=== PATIENT | female | born 1970 | race Two or more races ===

== ENCOUNTER 2024-12-29 10:58 | Outpatient (OUT) | payer OTHER, SELFPAY ==
--- OUTSIDE RECORDS SUMMARY | 2024-12-18 13:50 | XMS_ITS | Encounter Summary ---
Author Organization [facility] Address [address] [facility] [place] [address] Care Team Providers Care Ceramic Tiler Name Role Phone Terri Chun MD Primary Care Provider Reason for Visit * Reason Comments Pre-op Visit Encounter Details Date Type Department Care Team (Late st Contact Info) Description 12/18/2024 1:50 PM EDT Consult [facility] [address] [place] [address] Ayaan Barclay, DO [address] [place] [address] Pre-op examination; Labial cyst; Sebaceous cyst of labia Social History Tobacco Use Types Packs/Day Years Used Date Smoking Tobacco: Never Smokeless Tobacco: Never Alcohol Use Standard Drinks/Week Comments Never 0 (1 standard drink = 0.6 oz pure alcohol) Caffeine intake: 1-2 cups per day coffee, soda Social Connection and Isolat ion Panel [NHANES] Answer Date Recorded In a typical week, how many times do you talk on the phone with family, friends, or neighbors? More than three times a week 07/29/2023 How often do you get togethe r with friends or relatives? More than three times a week 07/29/2023 How often do you attend chur ch or presybeterian services? Never 07/29/2023 Do you belong to any clubs o r organizations such as baptism groups, unions, fraternal or athletic groups, or school groups? No 07/29/2023 How often do you attend meet ings of the clubs or organizations you belong to? Never 07/29/2023 Are you , , di vorced, , never , or living with a partner? 07/29/2023 AUDIT-C Answer Date Recorded Q1: How often do you have a drink containing alcohol? Never 07/29/2023 Q2: How many drinks containi ng alcohol do you have on a typical day when you are drinking? Patient does not drink Q3: How often do you have si x or more drinks on one occasion? Never 07/29/2023 Overall Financial Resource Strain (CARDIA) Answe r Date Recorded How hard is it for you to pa y for the very basics like food, housing, medical care, and heating? Not very hard 07/29/2023 PHQ-2 Answer Date Recorded Patient Health Questionnaire-2 Score 0 09/08/2024 [facility] - Occupational Stress Questionnaire Answer Date Recorded Do you feel stress - tense, restless, nervous, or anxious, or unable to sleep at night because your mind is troubled all the time - these days? Very much 07/29/2023 Exercise Vital Sign Answer Date Recorde d On average, how many days pe r week do you engage in moderate to strenuous exercise (like a brisk walk)? 3 days 07/29/2023 On average, how many minutes do you engage in exercise at this level? 30 min 07/29/2023 Hunger Vital Sign Answer Date Recorded Within the past 12 months, y ou worried that your food would run out before you got the money to buy more. Never true 07/29/19 24 Within the past 12 months, t he food you bought just didn't last and you didn't have money to get more. Never true 07/29/2023 PRAPARE - Transportation Answer Date Re corded In the past 12 months, has l ack of transportation kept you from medical appointments or from getting medications? No 07/09 In the past 12 months, has l ack of transportation kept you from meetings, work, or from getting things needed for daily living? No 07/29/2023 Housing Stability Vital Sign Answer Adrien e Recorded In the last 12 months, was t here a time when you were not able to pay the mortgage or rent on time? No 07/29/2023 Number of Places Lived in the Last Year Not on f ile 07/29/2023 In the last 12 months, was t here a time when you did not have a steady place to sleep or slept in a chcf (including now)? No 07/29/2023 Comments No Sex and Gender Information Value Date Recorded Sex Assigned at Not on file Legal Sex Female 7:02 PM EDT Gender Identity Female 08/19/2022 7:02 PM EDT Sexual Orientation Not on file documented as of this encounter Last Filed Vital Signs Vital Sign Reading Time Taken Comments Blood Pressure 102/80 12/18/2024 1:57 PM EDT Pulse - - Temperature - - Respiratory Rate - - Oxygen Saturation - - Inhaled Oxygen Concentration - - Weight 87.9 kg (193 lb 12 oz) 12/18/2024 1:57 PM EDT Height 160 cm (5' 3 ) 12/18/2024 1:57 PM EDT Body Mass Index 34.32 12/18/2024 1:57 PM EDT documented in this encounter Progress Notes * Lorelei Ziegler - 12/18/2024 1:50 PM EDT Reason for Appointment: Patient ID: Amanda Adams is a 54 y.o. female who presents for Pre-op Visit Patient presents today for Pre Op appointment. Patient is scheduled to undergo excision of benign lesion, multiple destruction of labia majora and minora lesions on 01-12-[address] Barclay at [facility]. MEDICATIONS Current Outpatient Medications Medication Instructions atorvastatin (LIPITOR) 10 mg, Oral, Daily Tirzepatide 10 mg, Subcutaneous, Weekly ALLERGIES Allergies Allergen Reactions Penicillins Hives PROBLEMS Active Ambulatory Problems Diagnosis Date Noted Abnormal mammogram 11/26/2022 Anxiety 11/26/2022 Conductive hearing loss, unilateral, right ear with restricted hearing on the contralateral side 11/26/2022 Dysfunction of both eustachian tubes 11/26/2022 DUB (dysfunctional uterine bleeding) 11/26/2022 Dysmenorrhea 11/26/2022 Female cystocele 11/26/2022 Hypercoagulable state ([facility]) 11/26/2022 Hyperlipidemia 11/26/2022 Iron deficiency anemia 11/26/2022 Localized swelling, mass and lump, trunk 11/26/2022 Metrorrhagia 11/26/2022 Morbid (severe) obesity due to excess calories ([facility]) 11/26/2022 Pulmonary embolus (HCC) 11/26/2022 Thyroid nodule 11/26/2022 Type 2 diabetes mellitus without complication (HCC) 11/26/2022 Urinary incontinence 11/26/2022 Deep vein thrombosis (DVT) of lower extremity (HCC) 07/30/2023 Diabetes (HCC) 07/30/2023 Hypertension 07/30/2023 Excessive and frequent menstruation 02/24/2017 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/24/2017 Rectocele 2022 Resolved Ambulatory Problems Diagnosis Date Noted No Resolved Ambulatory Problems Past Medical History: Diagnosis Date Anemia Clavicular area fullness Conductive hearing loss DM (diabetes mellitus), type 2 (HCC) DVT (deep venous thrombosis) (HCC) DVT (deep venous thrombosis) (HCC) 09/2016 ETD (eustachian tube dysfunction) Generalized anxiety disorder H/O total hysterectomy 06/2022 Lymphadenopathy of head and neck Migraine without aura Personal history of other medical treatment HISTORY PAST MEDICAL HISTORY SOCIAL HISTORY Past Medical History: Diagnosis Date Anemia Clavicular area fullness Conductive hearing loss Conductive hearing loss of right ear with restricted hearing of left ear DM (diabetes mellitus), type 2 (HCC) DVT (deep venous thrombosis) (HCC) DVT (deep venous thrombosis) (HCC) 09/2016 PE ETD (eustachian tube dysfunction) bilateral Generalized anxiety disorder H/O total hysterectomy 06/2022 Lymphadenopathy of head and neck Migraine without aura without mention of intractable migraine without mention of status migrainosus Personal history of other medical treatment physical treatment Thyroid nodule Social History Tobacco Use Smoking status: Never Smokeless tobacco: Never Substance Use Topics Alcohol use: Never Comment: Caffeine intake: 1-2 cups per day coffee, soda Drug use: Never FAMILY HISTORY Family History Problem Relation Name Age of Onset Lung cancer Mother Lung disease Mother Kidney cancer Mother Diabetes Father SURGICAL HISTORY Past Surgical History: Procedure Laterality Date BREAST LUMPECTOMY Right 1986 BREAST LUMPECTOMY 11/2016 Right breast lumpectomy with needle localization-benign CT ANGIOGRAM HEART CORONARY 06/25/2021 CT ANGIOGRAM TAVR 06/25/2021 CYSTOSCOPY 07/02/2022 HYSTERECTOMY 07/02/2022 OTHER SURGICAL HISTORY 2017 uterine ablation OTHER SURGICAL HISTORY 04/10/2022 Cath in urethra TONSILLECTOMY 1977 TUBAL LIGATION 2002 REVIEW OF SYSTEMS Review of Systems: Review of Systems Constitutional: Negative. HENT: Negative. Eyes: Negative. Respiratory: Negative. Cardiovascular: Negative. Gastrointestinal: Negative. Genitourinary: Negative. Musculoskeletal: Negative. Skin: Negative. Neurological: Negative. All other systems reviewed and are negative. Hematological: Negative. Endocrine: Negative. Allergic/Immunologic: Negative. OBJECTIVE Objective: Physical Exam Constitutional: Appearance: Normal appearance. She is normal weight. HENT: Head: Normocephalic. Cardiovascular: Rate and Rhythm: Normal rate. Pulses: Normal pulses. Pulmonary: Effort: Pulmonary effort is normal. Breath sounds: Normal breath sounds. Abdominal: Palpations: Abdomen is soft. Musculoskeletal: General: Normal range of motion. Neurological: General: No focal deficit present. Mental Status: She is alert and oriented to person, place, and time. Psychiatric: Mood and Affect: Mood normal. Behavior: Behavior normal. Thought Content: Thought content normal. Judgment: Judgment normal. Vitals and nursing note reviewed. Vitals: Estimated body mass index is 35.69 kg/m?? as calculated from the following: Height as of 09/08/24: 5' 3 . Weight as of 11/06/24: 201 lb 8 oz. BP: No LMP recorded. Patient is postmenopausal. ASSESSMENT & PLAN ICD-10-CM 1. Pre-op examination Z01.818 2. Labial cyst N90.7 3. Sebaceous cyst of labia N90.7 Patient presents for pre op for labial cyst excision. All questions answered and consents signed. Documented by Ayaan Barclay DO documented in this encounter Plan of Treatment Upcoming Encounters Date Type Department Care Team (Late st Contact Info) Description 01/22/2025 11:30 AM EDT Office Visit [facility] [address] [place] [address] Mayra Saavedra PA [address] [place], [place] [id number] documented as of this encounter Visit Diagnoses Diagnosis Pre-op examination Labial cyst Other specified noninflammatory disorder of vulva and perineum Sebaceous cyst of labia documented in this encounter Additional Health Concerns Assessment Noted Time PHQ-9 Depression Total Score: 3 08/10/19 24 2:58 PM EST documented as of this encounter Care Teams Ceramic Tiler Relationship Specialty Start Date End Date Terri Chun MD [address] [place] [address] PCP - General Family Medicine 11/11/22 documented as of this encounter
--- OUTSIDE RECORDS SUMMARY | 2024-12-29 11:08 | XMS_ITS | Encounter Summary ---
Author Organization [facility] Address [address] [place] [address] Phone Care Team Providers Care Single Stroke Preformer Name Role Phone Terri Chun MD Primary Care Provider [phone] Encounter Details Date Type Department Care Team (Late st Contact Info) Description 12/19/2018 [facility] [address] [place] [address] Conversion, Onbase Social History Tobacco Use Types Packs/Day Years Used Date Smoking Tobacco: Never Assessed Comments Unknown Sex and Gender Information Value Date Recorded Sex Assigned at Not on file Legal Sex Female 3:30 PM EST Gender Identity Not on file Sexual Orientation Not on file documented as of this encounter Plan of Treatment Scheduled Orders Name Type Priority Associated Diagnoses Orde r Schedule AUDIOLOGY REPORT - ONBASE SCAN Audiology Ordered: 019 documented as of this encounter Visit Diagnoses Not on filedocumented in this encounter Care Teams Single Stroke Preformer Relationship Specialty Start Date End Date Terri Chun MD [address] [place] [address] PCP - General 02/14/19 documented as of this encounter
--- OUTSIDE RECORDS SUMMARY | 2024-12-29 11:08 | XMS_ITS | Encounter Summary ---
Author Organization [facility] Address [address] [place] [address] Care Team Providers Care Chiropractic Teacher Name Role Phone Terri Chun MD Primary Care Provider [phone] Encounter Details Date Type Department Care Team (Late st Contact Info) Description 05/08/2024 Orders Only [facility] [address] [place] [address] Terri Gary, JAY [address] [place] [address] Social History Tobacco Use Types Packs/Day Years [...] often do you attend chur ch or rastafarian services? Never 07/29/2023 Do you belong to any clubs o r organizations such as caodaism groups, unions, fraternal or athletic groups, or [...] Date Recorded Patient Health Questionnaire-2 Score 0 08/10/2023 [facility] - Occupational Stress Questionnaire Answer Date Recorded [...] place to sleep or slept in a care home (including now)? No 07/29/2023 Comments Unknown Sex and Gender Information Value Date Recorded Sex Assigned at Not on file Legal Sex Female 7:02 PM EDT Gender Identity Female 08/19/2022 7:02 PM EDT Sexual Orientation Not on file documented as of this encounter Plan of Treatment Upcoming Encounters Date Type Department Care Team (Late st Contact Info) Description 01/22/2025 11:30 AM EDT Office Visit [facility] [address] [place] [address] Mayra Saavedra PA [address] [place], [place] [id number] documented as of this encounter Visit Diagnoses Not on filedocumented in this encounter Additional Health Concerns Assessment Noted Time PHQ-9 Depression Total Score: 3 08/10/19 24 2:58 PM EST documented as of this encounter Care Teams Chiropractic Teacher Relationship Specialty Start Date End Date Terri Chun MD [address] [place] [address] PCP - General Family Medicine 11/11/22 documented as of this encounter
--- OUTSIDE RECORDS SUMMARY | 2024-12-29 11:08 | XMS_ITS | Encounter Summary ---
Author Organization [employer] Address [id number] [address] [place] [address] Care Team Providers Care Manager Pacu Name Role Phone Terri Chun MD Primary Care Provider [phone] Encounter Details Date Type Department Care Team (Late st Contact Info) Description 06/24/2021 Orders Only [facility] [address] [place] [address] External, Scanning Provider Social History Tobacco Use Types Packs/Day Years Used Date Smoking Tobacco: Never Alcohol Use Standard Drinks/Week Comments No 0 (1 standard drink = 0.6 oz pur e alcohol) Childcare Answer Date Recorded Childcare Unknown 11/16/2018 Employment Answer Date Recorded Employment Unknown 11/16/2018 Purpose - Life Answer Date Recorded Purpose and direction in life Unknown Comments Unknown Sex and Gender Information Value Date Recorded Sex Assigned at Not on file Legal Sex Female 11:58 AM EDT Gender Identity Not on file Sexual Orientation Not on file COVID-19 Exposure Response Date Recorded In the last month, have you been in contact with someone who was confirmed or suspected to have Coronavirus / COVID-19? No / Unsure 06/25/2021 2:17 PM EST documented as of this encounter Plan of Treatment Not on file documented as of this encounter Procedures Procedure Name Priority Date/Time Associated Diagnosis Comments ECG 12-LEAD Routine 2021 MULTIPLE LABS Routine 03/25/2021 XR CHEST 2 VWS Routine 03/25/2021 documented in this encounter Results * ECG 12 lead (2021) us Scanning Provider External ECG ORDERABLES Final Result Performing Organization Address [facility] Co de Phone Number MANUALLY TRANSCRIBED RESULTS * Multiple labs (03/25/2021) 03/25/2021 us Scanning Provider External CO IMAGING Final Result Performing Organization Address [facility] de Phone Number MANUALLY TRANSCRIBED RESULTS * X-ray chest 2 views (03/25/2021) Anatomical Region Laterality Modality Body, Chest N/A Computed Radiogr aphy us Scanning Provider External IMG DIAGNOSTIC IMAGIN G ORDERABLES Final Result documented in this encounter Visit Diagnoses Not on filedocumented in this encounter Care Teams Manager Pacu Relationship Specialty Start Date End Date Terri Chun MD [address] [place] [address] PCP - General Family Medicine 10/09/16 documented as of this encounter
--- OUTSIDE RECORDS SUMMARY | 2024-12-29 11:08 | XMS_ITS | Clinical Summary ---
Author Organization [facility] Healthcare Address [address] [place] [address] Care Team Providers Care Director Zone Name Role Phone Terri Chun MD Primary Care Provider [phone] Allergies Active Allergy Reactions Criticality Noted Date Comments Penicillins Hives 11/26/2022 Medications atorvastatin (Lipitor) 10 MG tabletIndications:H yperlipidemia, unspecified hyperlipidemia type Take 1 tablet (10 mg) by mouth Daily 90 tablet 4 Active Tirzepatide 10 MG/0.5ML solution auto-injectorIndica tions:Type 2 diabetes mellitus without complication, without long-term current use of insulin (HCC) Inject 10 mg under the skin 1 (one) time per week 6 mL 1 5 Active Active Problems Problem Noted Date Diagnosed Date Deep vein thrombosis (DVT) of lower extremity Overview (07/30/2023): right Diabetes 07/30/2023 Hypertension 07/30/2023 Abnormal mammogram 11/26/2022 Anxiety 11/26/2022 Conductive hearing loss, uni lateral, right ear with restricted hearing on the contralateral side 11/26/2022 Dysfunction of both eustachian tubes 11/26/2022 DUB (dysfunctional uterine bleeding) 11/26/2022 Dysmenorrhea 11/26/2022 Female cystocele 11/26/2022 Hypercoagulable state ([facility]) 11/26/2022 Hyperlipidemia 11/26/2022 Assessment & Plan (09/08/2024 11:32 AM EDT): Continue lipitor. Labs 03/30. Iron deficiency anemia 11/26/2022 Localized swelling, mass and lump, trunk 023 Metrorrhagia 11/26/2022 Morbid (severe) obesity due to excess calories 0 11/26/2022 Pulmonary embolus 11/26/2022 Thyroid nodule 11/26/2022 Type 2 diabetes mellitus without complication Urinary incontinence 11/26/2022 Rectocele 2022 Excessive and frequent menstruation 02/24/2017 Pulmonary embolism with infarction 02/24/2017 Encounters Date Type Department Care Team Description 12/18/2024 1:50 PM EDT Consult [facility] [address] [place] [address] Ayaan Barclay DO Pre-op examination; Labial cyst; Sebaceous cyst of labia 11/13/2024 Orders Only [facility] [address] [facility] [place] [address] Terri Chun MD 11/10/[address] [facility] [address] [facility] [place] [address] Terri Chun MD 11/08/2024 Refill [facility] [address] [place] [address] Terri Chun MD Type 2 diabetes mellitus without complication, without long-term current use of insulin ([facility]) (Primary Dx); Morbid (severe) obesity due to excess calories ([facility]) 11/06/2024 11:20 AM EDT Consult [facility] [address] [place] [address] Ayaan Barclay DO Sebaceous cyst of labia; Labial cyst 11/06/2024 Bamboo flowsheet [facility] [address] [place] [address] Ayaan Barclay DO 10/31/2024 Orders Only [facility] [address] [place] [address] Susi Frank LPN 10/19/2024 Results Follow-Up [facility] R OB [address] [place] [address] Terri Ball MA 10/16/2024 5:30 PM EDT Office Visit [facility] OB [address] [place] [address] Brandi Adams CNM Sebaceous cyst of labia 10/16/2024 Bamboo flowsheet [facility] OB [address] [place] [address] Brandi Adams CNM 10/11/2024 Travel from Last 3 Months Family History Medical History Relation Name Comments Diabetes Father Kidney cancer Mother Lung cancer Mother Lung disease Mother Relation Name Status Comments Brother 2 brothers Father Alive Mother Alive Social History Tobacco Use Types Packs/Day Years Used Date Smoking Tobacco: Never Smokeless Tobacco: Never Tobacco Cessation:Counseling Given: Not Answered Alcohol Use Standard Drinks/Week Comments Never 0 [...] week 07/29/2023 How often do you attend [facility] or religion services? Never 07/29/2023 Do you belong to any clubs o r organizations such as episcopalian groups, unions, fraternal or athletic groups, or [...] you are drinking? Patient does not drink 02/22/202 4 Q3: How often do you have si x or more drinks on one occasion? Never 07/29/2023 Overall Financial Resource Strain (CARDIA) Answe r Date Recorded How hard is it for you to pa y for the very basics like food, housing, medical care, and heating? Not very hard 07/29/2023 PHQ-2 Answer Date Recorded Patient Health Questionnaire-2 Score 0 09/08/2024 [facility] - Occupational Stress Questionnaire Answer Date Recorded [...] place to sleep or slept in a alf (including now)? No 07/29/2023 Comments No Sex and Gender Information Value Date Recorded Sex Assigned at Not on file Legal Sex Female 7:02 PM EDT Gender Identity Female 08/19/2022 7:02 PM EDT Sexual Orientation Not on file Last Filed Vital Signs Vital Sign Reading Time Taken Comments Blood Pressure 102/80 12/18/2024 1:57 PM EDT Pulse 72 09/08/2024 9:57 AM EDT Temperature 35.9 C (96.6 F) 08/01/2024 8:29 AM EST Respiratory Rate - - Oxygen Saturation 95% 09/08/2024 9:57 AM EDT Inhaled Oxygen Concentration - - Weight 87.9 kg (193 lb 12 oz) 12/18/2024 1:57 PM EDT Height 160 cm (5' 3 ) 12/18/2024 1:57 PM EDT Body Mass Index 34.32 12/18/2024 1:57 PM EDT Plan of Treatment Upcoming Encounters Date Type Department Care Team (Late st Contact Info) Description 01/22/2025 11:30 AM EDT Office Visit [facility] OB [address] [facility] [place] [phone] Mayra Saavedra PA [address] [facility] [place] [address] Health Maintenance Due Date Last Done Comments CT Colonography 1970 FIT-DNA 1970 FIT 1970 FOBT 1970 Sigmoidoscopy 1970 Pap Smear 05/21/2023 05/21/2020 Diabetes: Hemoglobin A1C 10/29/2024 025, 04/24/2024, 07/30/2023, Additional history exists Influenza Vaccine (#1) 2025 Cervical Cancer Screening 05/21/2025 HPV/Cotest 05/21/2025 05/21/2020 Diabetes: Urine Protein Screening 08/01/2025 08/01/2024, 06/25/2022, 06/11/2021, Additional history exists Mammogram 09/18/2025 09/18/2024, 03/11/2023, 01/23/2022, Additional history exists Diabetes: Retinopathy Screening 10/17/2026 10/17/2024, 08/14/2021, 07/10/2019, Additional history exists Colonoscopy 10/03/2033 10/04/2023, 04/02/2024, 10/04/2023 Colorectal Cancer Screening 10/03/2033 Procedures Procedure Name Priority Date/Time Associated Diagnosis Comments DIABETIC RETINOPATHY SCREENING - OU - BOTH EYES Routine 10/17/2024 10:10 AM EDT SURESWAB(R) ADVANCED VAGINITIS PLUS, TMA Routine 10/17/2024 7:54 AM EDT Sebaceous cyst of labia BI MAMMOGRAM SCREENING TOMOSYNTHESIS BILATERAL Routine 09/18/2024 11:38 AM EDT Breast cancer screening by mammogram MICROALBUMIN / CREATININE URINE RATIO Routine 08/01/2024 9:28 AM EST Type 2 diabetes mellitus without complication, with long-term current use of insulin (HCC) POCT GLYCOSYLATED HEMOGLOBIN (HGB A1C) Routine 08/01/2024 8:41 AM EST Type 2 diabetes mellitus without complication, with long-term current use of insulin (HCC) Q - THINPREP(R) TIS AND HPV MRNA E6/E7 RFL HPV 16,18/45 Routine 05/21/2020 PAP SMEAR Routine 05/21/2020 12:00 AM EST from Last 3 Months or Most Recently Relevant to Health Maintenance Results * Diabetic Retinopathy Screening - OU - Both Eyes (10/17/2024 10:10 AM EDT) Anatomical Region Laterality Modality Head Other Terri Chun MD OPHTH PHOTOGRAPHY Final Resul t * SURESWAB(R) ADVANCED VAGINITIS PLUS, TMA (10/17/2024 7:54 AM EDT) SURESWAB(R) ADV BACTERIAL VAGINOSIS (BV), TMA NEGATIVE NEGATIVE [facility] ANITA SPECIES NOT DETECTED NOT DETECTED [facility] ANITA GLABRATA NOT DETECTED NOT DETECTED [facility] Comment: Anita species C. albicans, C. tropicalis, C. parapsilosis, and/or C. dubliniensis can be detected, but not differentiated, in the Anita spp. result. TRICHOMONAS VAGINALIS (TV) NOT DETECTED NOT DETECTED [facility] CHLAMYDIA TRACHOMATIS RNA, TMA, UROGENITAL NOT DETECTED NOT DETECTED [facility] NEISSERIA GONORRHOEAE RNA, TMA, UROGENITAL NOT DETECTED NOT DETECTED [facility]OO Comment: For additional information, please refer to https://education.Market Track/faq/XLL332 (This link is being provided for information/ educational purposes only.) 10/17/2024 7:54 AM EDT 10/17/2024 7:55 AM EDT Narrative Resulting Agency Comment Performing Organization Information Site ID: QPT Name: [employer] [facility] Address: [address] [place] [address], [address] [place] [id number] Director: Parker Holcomb MD us Brandi TREVINO LAB CYTOLOGY ORDERABLES Zeina lao Result [facility] * Bilateral screening mammogram with tomosynthesis (09/18/2024 11:38 AM EDT) Anatomical Region Laterality Modality Breast Bilateral Mammography 09/18/2024 12:2 4 PM EDT Impressions 09/18/2024 12:36 PM EDT Impression: No specific evidence of malignancy seen in either breast. BIRADS 2 - Benign Findings DENSITY: There are scattered areas of fibroglandular density. FOLLOW-UP: Routine Screening Mammogram ELECTRONICALLY SIGNED BY: Chepe Downey M.D. Narrative 09/18/2024 12:36 PM EDT Examination: BI MAMMOGRAM SCREENING TOMOSYNTHESIS BILATERAL Clinical History: screening Technique: Screening digital mammography study of both breasts was performed with 2-D and 3-D tomosynthesis imaging. Study was compared to the prior exam dated 08/11/2023. Findings: There is no evidence of interval dominant spiculated mass, grouped microcalcifications, or skin thickening which would be suggestive of malignancy. A few asymmetric densities bilaterally similar to the prior study as well as prior reviewed studies dating back to 12/27/2020. A few benign calcifications on the left. Axillary lymph nodes are noted bilaterally which appear grossly unremarkable. Procedure Note Chepe Downey MD - 09/18/2024 Examination: BI MAMMOGRAM SCREENING TOMOSYNTHESIS BILATERAL Clinical History: screening Technique: Screening digital mammography study of both breasts wasperformed with 2-D and 3-D tomosynthesis imaging. Study was compared tothe prior exam dated 08/11/2023. Findings: There is no evidence of interval dominant spiculated mass,grouped microcalcifications, or skin thickening which would be suggestiveof malignancy. A few asymmetric densities bilaterally similar to the prior study as wellas prior reviewed studies dating back to 12/27/2020. A few benigncalcifications on the left. Axillary lymph nodes are noted bilaterallywhich appear grossly unremarkable. IMPRESSION: Impression: No specific evidence of malignancy seen in either breast. BIRADS 2 - Benign Findings DENSITY: There are scattered areas of fibroglandular density. FOLLOW-UP: Routine Screening Mammogram ELECTRONICALLY SIGNED BY: Chepe Downey M.D. us Terri Chun MD IMG BI PROCEDURES Final Resul t * Microalbumin / creatinine urine ratio (08/01/2024 9:28 AM EST) CREATININE, RANDOM URINE 236 20 - 275 mg/dL [facility] ALBUMIN, URINE 0.8 See Note: mg/dL [facility] Comment: Reference Range: Reference Range Not established ALBUMIN/CREATININE RATIO, RANDOM URINE 3 <30 mg/g creat [facility] Comment: The ADA defines abnormalities in albumin excretion as follows: Albuminuria Category Result (mg/g creatinine) Normal to Mildly increased <30 Moderately increased 30-299 Severely increased > OR = 300 The ADA recommends that at least two of three specimens collected within a 3-6 month period be abnormal before considering a patient to be within a diagnostic category. Urine Urine specimen obtained by clean catch procedure / Unknown 08/01/2024 9:28 AM EST 08/01/2024 4:34 PM EST Narrative Resulting Agency Comment Performing Organization Information Site ID: QPT Name: [employer] [facility] Address: [address] [place] [address], [address] [place] [phone] Director: Parker Holcomb MD us Apolonia Felder NP LAB URINE ORDERABLES Fi nal Result [facility] * POCT glycosylated hemoglobin (Hb A1C) docked device (08/01/2024 8:41 AM EST) Hemoglobin A1C 6.3 Blood Venous blood specimen / Unknown 08/01/2024 8:41 AM EST Apolonia Felder ASSISTED LIVING HOUSEKEEPER POINT OF CARE TEST ENTE R/EDIT ORDERABLES Final Result * Q - THINPREP(R) TIS AND HPV MRNA E6/E7 RFL HPV 16,18/45 (05/21/2020) CLINICAL INFORMATION: None given [facility] LMP: None given [facility] PREV. PAP: None given [facility] ACY [facility] PREV. BX: None given [facility] SOURCE: None given [facility] STATEMENT OF ADEQUACY: SEE NOTE [facility] Comment: Satisfactory for evaluation. Endocervical/transformation zone component present. INTERPRETATION/RE SULT: Negative for intraepithelial lesion or malignancy. [facility] COMMENT: This Pap test has been evaluated with computer assisted technology. [facility] ENTRY LEVEL MARKETING REPRESENTATIVE: SEE NOTE NO [facility] Comment: MAHAD TORRES(ASCP) CT screening location: [place] [address]. COMMENT SEE NOTE [facility] Comment: EXPLANATORY NOTE: The Pap is a screening test for cervical cancer. It is not a diagnostic test and is subject to false negative and false positive results. It is most reliable when a satisfactory sample, regularly obtained, is submitted with relevant clinical findings and history, and when the Pap result is evaluated along with historic and current clinical information. HPV MRNA E6/E7 Not Detected Not Detected [facility] Comment: This test was performed using the APTIMA HPV Assay ([employer] This assay detects E6/E7 viral messenger RNA (mRNA) from 14 high-risk HPV types (16,18,31,33,35,39,45,51,52,56,58,59,66,68). The analytical performance characteristics of this assay have been determined by [employer]. The modifications have not been cleared or approved by the FDA. This assay has been validated pursuant to the CLIA regulations and is used for clinical purposes. 05/21/2020 us Brandi Adams CNM [facility] Final Result [facility] * Pap Smear (05/21/2020 12:00 AM EST) Swab Cervical swab / Unknown Ning Nurse [facility] Ob LAB CYTOLOGY ORDERABLES Final Result EXTERNAL LAB from Last 3 Months or Most Recently Relevant to Health Maintenance [facility] Care Teams Director Zone Relationship Specialty Start Date End Date Terri Chun MD [address] [facility] [place], [place] [id number] PCP - General Family Medicine 11/11/22
--- OUTSIDE RECORDS SUMMARY | 2024-12-29 11:08 | XMS_ITS | Encounter Summary ---
Author Organization [facility] Address [address] [facility] [place] [address] Care Team Providers Care Shade Hanger Name Role Phone Terri Chun MD Primary Care Provider [phone] Encounter Details Date Type Department Care Team ([facility] Contact Info) Description 12/19/2022 Orders Only [facility]NR FM [address] [facility] [place] [address] Danni Asencio MA Social History Tobacco Use Types Packs/Day Years Used Date Smoking Tobacco: Never Smokeless Tobacco: Never Alcohol Use Standard Drinks/Week Comments Never 0 (1 standard drink = 0.6 oz pure alcohol) Caffeine intake: 1-2 cups per day coffee, soda PHQ-2 Answer Date Recorded Patient Health Questionnaire-2 Score 0 11/26/2022 Comments Unknown Sex and Gender Information Value Date Recorded Sex Assigned at Not on file Legal Sex Female 7:02 PM EDT Gender Identity Female 08/19/2022 7:02 PM EDT Sexual Orientation Not on file documented as of this encounter Plan of Treatment Upcoming Encounters Date Type Department Care Team (Late Contact Info) Description 01/22/2025 11:30 AM EDT Office Visit [facility] BCP OB [address] [facility] [id number] Mayra Saavedra PA [address] [facility] [address] [place], [place] [id number] documented as of this encounter Visit Diagnoses Not on filedocumented in this encounter Care Teams Shade Hanger Relationship Specialty Start Date End Date Terri Chun MD [address] [place] [address] PCP - General Family Medicine 11/11/22 documented as of this encounter
--- OUTSIDE RECORDS SUMMARY | 2024-12-29 11:08 | XMS_ITS | Encounter Summary ---
Author Organization [facility] Address [address] [facility] [place] [address] Care Team Providers Care Syrup Maker Name Role Phone Terri Chun MD Primary Care Provider [phone] Encounter Details Date Type Department Care Team (Late st Contact Info) Description 11/13/2024 Orders Only [facility] FNR [address] [place] [address] Terri Chun MD [address] [place] [address] Social History Tobacco Use Types [...] often do you attend chur ch or restorationism services? Never 07/29/2023 Do you belong to any clubs o r organizations such as mu-ism groups, unions, fraternal or athletic groups, or [...] Recorded Patient Health Questionnaire-2 Score 0 09/08/2024 [facility] - Occupational Stress [...] place to sleep or slept in a residential (including now)? No 07/29/2023 Comments No Sex [...] EDT Office Visit [facility] BCP OB [address] [facility] [place] [address] Mayra Saavedra PA [address] [facility] [address] documented as of this encounter Procedures Procedure Name Priority Date/Time Associated Diagnosis Comments DIABETIC RETINOPATHY SCREENING - OU - BOTH EYES Routine 10/17/2024 10:10 AM EDT documented in this encounter Results * Diabetic Retinopathy Screening - OU - Both Eyes (10/17/2024 10:10 AM EDT) Anatomical Region Laterality Modality Head Other us Terri Chun MD OPHTH PHOTOGRAPHY Final Resul t documented in this encounter Visit Diagnoses Not on filedocumented in this encounter Additional Health Concerns Assessment Noted Time PHQ-9 Depression Total Score: 3 08/10/19 24 2:58 PM EST documented as of this encounter Care Teams Syrup Maker Relationship Specialty Start Date End Date Terri Chun MD [address] [place] [address] PCP - General Family Medicine 11/11/22 documented as of this encounter
--- OUTSIDE RECORDS SUMMARY | 2024-12-29 11:08 | XMS_ITS | Clinical Summary ---
Author Organization [facility] Address [address] [place], [place] [id number] Care Team Providers Care Radio Announcer Name Role Phone Terri Chun Primary Care Provider [phone] Allergies Active Allergy Reactions Criticality Noted Date Comments Penicillins Hives,Rash 09/30/2016 Medications traZODone (DESYREL) 50 mg tablet Take 50 mg by mouth daily at bedtime. Active metFORMIN (GLUCOPHAGE) 1,000 mg tablet Take 1,000 mg by mouth twice daily with meals. Active lisinopril 2.5 mg tablet Take 2.5 mg by mouth once daily. Active atorvastatin (LIPITOR) 20 mg tablet Take 20 mg by mouth once daily. Active liraglutide (VICTOZA 2-IDANIA) 0.6 mg/0.1 mL (18 mg/3 mL) pnij Inject 1.8 mg subcutaneously once daily. Active Active Problems Problem Noted Date Diagnosed Date Pulmonary embolus with infarction 02/24/2017 Iron deficiency anemia due to chronic blood loss 02/24/2017 Menorrhagia with regular cycle 02/24/2017 Family History Medical History Relation Comments Diabetes Father Relation Status Comments Father Alive Mother Alive Social History Tobacco Use Types Packs/Day Years Used Date Smoking Tobacco: Never Smokeless Tobacco: Never Alcohol Use Standard Drinks/Week Comments No 0 (1 standard drink = 0.6 oz pur e alcohol) Comments No Sex and Gender Information Value Date Recorded Sex Assigned at Not on file Legal Sex Female 8:55 AM EDT Gender Identity Not on file Sexual Orientation Not on file Last Filed Vital Signs Vital Sign Reading Time Taken Comments Blood Pressure 131/60 03/22/2017 2:00 PM EDT Pulse 81 03/22/2017 2:00 PM EDT Temperature 37.2 C (98.9 F) 03/22/2017 2:00 PM EDT Respiratory Rate 18 03/22/2017 2:00 PM EDT Oxygen Saturation 99% 03/10/2017 9:15 AM EDT resting Inhaled Oxygen Concentration - - Weight 101.8 kg (224 lb 6.4 oz) 03/15/2017 9:16 AM EDT Height 160 cm (5' 2.99 ) 03/15/2017 9:16 AM EDT Body Mass Index 39.76 03/15/2017 9:16 AM EDT Plan of Treatment Health Maintenance Due Date Last Done Comments Anxiety Screening 1988 Depression Screening 1988 HIV Screening 1988 Hepatitis C Screening 1988 DTaP,Tdap,Td Vaccine (1 - Tdap) 1989 Hepatitis B Vaccine (1 of 3 - 19+ 3-dose series) 06/23 Cervical Cancer Screening [address] Colonography 2015 Cologuard (FIT-DNA) 2015 Colonoscopy 2015 Colorectal Cancer Screening 2015 Diabetes Screening 2015 Fecal Occult Blood 2015 Lipid Screening 2015 Sigmoidoscopy 2015 Pneumococcal Vaccine: 50+ (1 of 1 - PCV) 2020 Shingrix Vaccine (1 of 2) 2020 Covid-19 Vaccine (1 - 2023- season) 2024 Influenza Vaccine (#1) 2025 Insurance [facility] PL[facility] Care Teams Radio Announcer Relationship Specialty Start Date End Date Terri Chun [address] [place] [address] PCP - General Family Medicine 02/18/17
--- OUTSIDE RECORDS SUMMARY | 2024-12-29 11:08 | XMS_ITS | Encounter Summary ---
Author Organization [facility] Address [address] [place] [address] Care Team Providers Care Weld Technician Name Role Phone Terri Chun MD Primary Care Provider [phone] Encounter Details Date Type Department Care Team (Late st Contact Info) Description 10/19/2024 Results Follow-Up [facility] OB [address] [place] [address] Terri Ball MA Social History Tobacco Use Types Packs/Day [...] often do you attend chur ch or oriental orthodox services? Never 07/29/2023 Do you belong to any clubs o r organizations such as muslim groups, unions, fraternal or athletic groups, or [...] Recorded Patient Health Questionnaire-2 Score 0 09/08/2024 [facility] - Occupational [...] place to sleep or slept in a correction (including now)? No 07/29/2023 Comments No Sex [...] EDT Office Visit [facility] BCP OB [address] [facility] [address] Mayra Saavedra PA [address] [facility] [place] [address] documented as of this encounter Visit Diagnoses Not on filedocumented in this encounter Additional Health Concerns Assessment Noted Time PHQ-9 Depression Total Score: 3 08/10/19 24 2:58 PM EST documented as of this encounter Care Teams Weld Technician Relationship Specialty Start Date End Date Terri Chun MD [address] [place] [address] PCP - General Family Medicine 11/11/22 documented as of this encounter
--- OUTSIDE RECORDS SUMMARY | 2024-12-29 11:08 | XMS_ITS | Encounter Summary ---
Author Organization [facility] Address [address] [facility] [place] [address] Care Team Providers Care Cut Off Sawyer Log Name Role Phone Terri Chun MD Primary Care Provider [phone] Encounter Details Date Type Department Care Team (Late st Contact Info) Description 12/31/2022 Abstract [facility] OB [address] [place] [address] Brandi Adams, CNM [address] [place], [place] [id number] Social History Tobacco Use Types Packs/Day Years [...] EDT Office Visit [facility] [address] [facility] [address] Mayra Saavedra PA [address] [place] [address] documented as of this encounter Visit Diagnoses Not on filedocumented in this encounter Care Teams Cut Off Sawyer Log Relationship Specialty Start Date End Date Terri Chun MD [address] [place] [address] PCP - General Family Medicine 11/11/22 documented as of this encounter
--- OUTSIDE RECORDS SUMMARY | 2024-12-29 11:08 | XMS_ITS | Clinical Summary ---
Author Organization [facility] Address [address] [place] [address] Phone Care Team Providers Care Career Services Coordinator Name Role Phone Terri Chun MD Primary Care Provider [phone] Social History Tobacco Use Types Packs/Day Years Used Date Smoking Tobacco: Never Assessed Comments Unknown Sex and Gender Information Value Date Recorded Sex Assigned at Not on file Legal Sex Female 3:30 PM EST Gender Identity Not on file Sexual Orientation Not on file Plan of Treatment Not on file Care Teams Career Services Coordinator Relationship Specialty Start Date End Date Terri Chun MD [address] [place] [address] PCP - General 02/14/19
--- OUTSIDE RECORDS SUMMARY | 2024-12-29 11:08 | XMS_ITS | Encounter Summary ---
Author Organization [facility] Address [address] [place] [address] Care Team Providers Care Certified Nursing Assistant Name Role Phone Terri Chun MD Primary Care Provider [phone] Encounter Details Date Type Department Care Team (Late st Contact Info) Description 09/18/2024 Results Follow-Up [facility] [address] [place] [address] Terri Chun MD [address] [place] [address] Social History Tobacco Use Types [...] often do you attend chur ch or hinduism services? Never 07/29/2023 Do you belong to any clubs o r organizations such as zoroastrianism groups, unions, fraternal or athletic groups, or [...] Recorded Patient Health Questionnaire-2 Score 0 09/08/2024 [facility] - Occupational Stress Questionnaire Answer Date Recorded [...] place to sleep or slept in a mcc (including now)? No 07/29/2023 Comments Unknown Sex [...] EDT Office Visit [facility] [address] [facility] [place] [address] Mayra Saavedra PA [address] [facility] [address] [place], [place] [id number] documented as of this encounter Visit Diagnoses Not on filedocumented in this encounter Additional Health Concerns Assessment Noted Time PHQ-9 Depression Total Score: 3 08/10/19 24 2:58 PM EST documented as of this encounter Care Teams Certified Nursing Assistant Relationship Specialty Start Date End Date Terri Chun MD [address] [place] [address] PCP - General Family Medicine 11/11/22 documented as of this encounter
--- OUTSIDE RECORDS SUMMARY | 2024-12-29 11:08 | XMS_ITS | Encounter Summary ---
Author Organization [facility] Address [address] [facility] [place] [address] Care Team Providers Care Qualification Engineer Name Role Phone Terri Chun MD Primary Care Provider [phone] Encounter Details Date Type Department Care Team (Late Contact Info) Description 01/25/2023 Abstract [facility] [address] [place] [address] Apolonia Felder NP [address] [place] [address] Social History Tobacco Use Types Packs/Day Years [...] EDT Office Visit [facility] [address] [place] [address] Mayra Saavedra PA [address] [place] [address] documented as of this encounter Visit Diagnoses Not on filedocumented in this encounter Care Teams Qualification Engineer Relationship Specialty Start Date End Date Terri Chun MD [address] [place] [address] PCP - General Family Medicine 11/11/22 documented as of this encounter
--- OUTSIDE RECORDS SUMMARY | 2024-12-29 11:08 | XMS_ITS | Encounter Summary ---
Author Organization [facility] Address [address] [facility] [place] [address] Care Team Providers Care Project Facilitator Name Role Phone Terri Chun MD Primary Care Provider [phone] Encounter Details Date Type Department Care Team (Late Contact Info) Description 05/05/2023 Abstract [facility] [address] [place] [address] Apolonia Felder NP [address] [place] [address] Social History Tobacco Use Types [...] Visit [facility] [address] [place] [address] Mayra Saavedra PA [address] [place] [address] documented as of this encounter Visit Diagnoses Not on filedocumented in this encounter Care Teams Project Facilitator Relationship Specialty Start Date End Date Terri Chun MD [address] [place] [address] PCP - General Family Medicine 11/11/22 documented as of this encounter
--- OUTSIDE RECORDS SUMMARY | 2024-12-29 11:08 | XMS_ITS | Encounter Summary ---
Author Organization [facility] Address [address] [place] [address] Care Team Providers Care Swing Grinder Name Role Phone Terri Chun MD Primary Care Provider [phone] Encounter Details Date Type Department Care Team (Late st Contact Info) Description 10/31/2024 Orders Only [facility] [address] [address] Susi Frank LPN [address] [facility], [place] [id number] Social History Tobacco Use Types Packs/Day Years [...] often do you attend chur ch or yarsanism services? Never 07/29/2023 Do you belong to any clubs o r organizations such as presybeterian groups, unions, fraternal or athletic groups, or [...] Patient Health Questionnaire-2 Score 0 09/08/2024 [facility] of Occupat ional [facility] - Occupational Stress Questionnaire Answer Date [...] place to sleep or slept in a detention (including now)? No 07/29/2023 Comments No Sex [...] EDT Office Visit [facility] [address] [facility] [address] Mayra Saavedra PA [address] [facility] [place] [address] documented as of this encounter Procedures Procedure Name Priority Date/Time Associated Diagnosis Comments PAP SMEAR Routine 05/21/2020 12:00 AM EST documented in this encounter Results * Pap Smear (05/21/2020 12:00 AM EST) Swab Cervical swab / Unknown us Ning Nurse [facility] LAB CYTOLOGY ORDERABLES Final Result EXTERNAL LAB documented in this encounter Visit Diagnoses Not on filedocumented in this encounter Additional Health Concerns Assessment Noted Time PHQ-9 Depression Total Score: 3 08/10/19 24 2:58 PM EST documented as of this encounter Care Teams Swing Grinder Relationship Specialty Start Date End Date Terri Chun MD [address] [place] [address] PCP - General Family Medicine 11/11/22 documented as of this encounter
--- OUTSIDE RECORDS SUMMARY | 2024-12-29 11:08 | XMS_ITS | Encounter Summary ---
Author Organization [facility] Address [address] [facility] [place] [address] Care Team Providers Care System Archive Analyst Name Role Phone Terri Chun MD Primary Care Provider [phone] Encounter Details Date Type Department Care Team (Late Contact Info) Description 12/25/2022 Abstract [facility] [address] [place] [address] Apolonia Felder NP [address] [place] [address] Social History Tobacco Use Types [...] Visit [facility] [address] [place] [address] Mayra Saavedra PA [address] [place] [address] documented as of this encounter Visit Diagnoses Not on filedocumented in this encounter Care Teams System Archive Analyst Relationship Specialty Start Date End Date Terri Chun MD [address] [place] [address] PCP - General Family Medicine 11/11/22 documented as of this encounter
--- OUTSIDE RECORDS SUMMARY | 2024-12-29 11:08 | XMS_ITS | Clinical Summary ---
Author Organization [facility] Address [address] [facility], [address] [place] [address] Care Team Providers Care Leather Currier Name Role Phone Terri Mayen MD Primary Care Pr ovider Allergies Active Allergy Reactions Criticality Noted Date Comments Penicillins Hives,Rash Low 09/30/2016 Medications atorvastatin (LIPITOR) 20 MG tablet Take 20 mg by mouth daily Active Liraglutide (VICTOZA) 18 MG/3ML SOPN SC injection Inject 1.2 mg into the skin Active traZODone (DESYREL) 50 MG tablet Take 50 mg by mouth Active sertraline (ZOLOFT) 25 MG tablet Take 25 mg by mouth daily Active Tirzepatide (MOUNJARO SC) Inject into the skin weekly Active tamsulosin (FLOMAX) 0.4 MG capsule Take 1 capsule by mouth daily 7 capsule 07/02/19 23 Active ibuprofen (ADVIL;MOTRIN) 600 MG tablet Take 1 tablet by mouth every 6 hours as needed for Pain 30 tablet 07/02/19 23 Active senna-docusate (PERICOLACE) 8.6-50 MG per tablet Take 2 tablets by mouth daily as needed for Constipation 30 tablet 07/02/19 23 Active ondansetron (ZOFRAN-ODT) 4 MG disintegrating tablet Take 1 tablet by mouth every 8 hours as needed for Nausea or Vomiting 15 tablet 07/02/19 23 Active simethicone (MYLICON) 80 MG chewable tablet Take 1 tablet by mouth 4 times daily as needed for Flatulence 30 tablet 07/02/19 Active Active Problems Problem Noted Date Diagnosed Date Urinary incontinence 2022 Cystocele with prolapse 2022 Rectocele 2022 Uterine prolapse 2022 Iron deficiency anemia 02/24/2017 Excessive and frequent menstruation 02/24/2017 Pulmonary embolism with infarction 02/24/2017 Secondary dysmenorrhea DUB (dysfunctional uterine bleeding) Family History Medical History Relation Name Comments Diabetes Father Relation Name Status Comments Brother 1 Alive Brother 2 Alive Father Alive Mother Alive Social History Tobacco Use Types Packs/Day Years Used Date Smoking Tobacco: Never Smokeless Tobacco: Never Tobacco Cessation:Counseling Given: Not Answered Alcohol Use Standard Drinks/Week Comments No 0 (1 standard drink = 0.6 oz pur e alcohol) Comments No Sex and Gender Information Value Date Recorded Sex Assigned at Not on file Legal Sex Female 11:08 AM EDT Gender Identity Not on file Sexual Orientation Not on file Last Filed Vital Signs Vital Sign Reading Time Taken Comments Blood Pressure 111/51 07/02/2022 3:00 PM EST Pulse 59 07/02/2022 3:00 PM EST Temperature 37.2 C (99 F) 07/02/2022 1:45 PM EST Respiratory Rate 18 07/02/2022 2:06 PM EST Oxygen Saturation 95% 07/02/2022 3:00 PM EST Inhaled Oxygen Concentration - - Weight 108.9 kg (240 lb) 07/02/2022 8:02 AM EST Height 160 cm (5' 3 ) 07/02/2022 8:02 AM EST Body Mass Index 42.51 07/02/2022 8:02 AM EST Plan of Treatment Health Maintenance Due Date Last Done Comments Lipids 1980 Depression Screen 1982 HIV screen 1985 Hepatitis C screen 1988 DTaP/Tdap/Td vaccine (1 - Tdap) 1989 Hepatitis B vaccine (1 of 3 - 19+ 3-dose series) 1989 Breast cancer screen 2010 Colonoscopy 2015 Colorectal Cancer Screen 2015 FIT/FOBT: Average risk 2015 Fecal-DNA (Cologuard): Craig ge risk 2015 Sigmoidoscopy/CT colonography 2015 Pneumococcal 50+ years Vacci ne (1 of 1 - PCV) 2020 Shingles vaccine (1 of 2) 2020 COVID-19 Vaccine (1 - 2023-2 5 season) 2024 Flu vaccine (#1) 01/05/2025 Diabetes screen Discontinued 04/23/2017 Hepatitis A vaccine Aged Out No longe r eligible based on patient's age to complete this topic Hib vaccine Aged Out No longer eligi ble based on patient's age to complete this topic Meningococcal (ACWY) vaccine Aged Out No longer eligible based on patient's age to complete this topic Meningococcal B vaccine Aged Out No l onger eligible based on patient's age to complete this topic Polio vaccine Aged Out No longer elig ible based on patient's age to complete this topic Medical Devices Implanted Type Area Field Service Representative Device Identifier Shelf Expiration Date Model / Serial / Lot System Bulking Proc Bulkamid Urethral - [id number] Implanted:Qty: 2 on 07/02/2022 by Jhon Griffiths DO at [facility] N/A: Urethra VYou 03/06/2025 [id number] / / [id number] Procedures Procedure Name Priority Date/Time Associated Diagnosis Comments HEMOGLOBIN A1C Routine 04/23/2017 8:17 AM EST from Last 3 Months or Most Recently Relevant to Health Maintenance Results * Hemoglobin A1c (04/23/2017 8:17 AM EST) Hemoglobin A1C 5.2 4.8 - 5.9 % 04/23/2017 11:53 AM EST [facility] Estimated Avg Glucose 103 mg/dL 04/23/2017 11:53 AM EST [facility] Comment: The ADA and AACC recommend providing the estimated average glucose result to permit better patient understanding of their HBA1c result. Performed at [address] [place] [address] ([phone] BLOOD SPECIMEN / Unknown 04/23/2017 8:17 AM EST 04/23/2017 8:18 AM EST us Luca Bailey MD CHEMISTRY ORDERABLES Final Re sult [facility] [address] [place] [address], [facility] [phone] from Last 3 Months or Most Recently Relevant to Health Maintenance Insurance [employer] Advance Directives * Full Code (Latest Code Status on File) Date Activated Date Inactivated Comments 04/28/2017 8:50 AM 04/28/2017 12:14 PM * Full Code Date Activated Date Inactivated Comments 04/28/2017 6:46 AM 04/28/2017 8:50 AM Care Teams Leather Currier Relationship Specialty Start Date End Date Terri Mayen MD PCP - General Family Medicine 03/04/17
--- OUTSIDE RECORDS SUMMARY | 2024-12-29 11:08 | XMS_ITS | Clinical Summary ---
Author Organization [employer] Address [id number] [address] [place] [address] Care Team Providers Care Taker Off Braker Machine Name Role Phone Terri Chun MD Primary Care Provider [phone] Allergies Active Allergy Reactions Criticality Noted Date Comments Penicillins 09/30/2016 Medications atorvastatin (LIPITOR) 20 mg tablet Take 1 tablet (20 mg total) by mouth nightly. Active tirzepatide (MOUNJARO) 5 mg/0.5 mL pen injector Inject under the skin once a week. 08/06/2023 Active sertraline (ZOLOFT) 25 mg tablet Take 1 tablet (25 mg total) by mouth in the morning. 08/13/2023 Active Active Problems No known active problems Family History Medical History Relation Name Comments COPD Father Diabetes type II Father Rheum arthritis Father Kidney cancer Mother Lung cancer Mother Relation Name Status Comments Father Alive Mother Alive Social History Tobacco Use Types Packs/Day Years Used Date Smoking Tobacco: Never Smokeless Tobacco: Never Tobacco Cessation:Counseling Given: Not Answered Alcohol Use Standard Drinks/Week Comments No 0 (1 standard drink = 0.6 oz pur e alcohol) Childcare Answer Date Recorded Childcare Unknown 11/16/2018 Employment Answer Date Recorded Employment Unknown 11/16/2018 Hunger Screening Answer Date Recorded Within the past 12 months we worried whether our food would run out before we got money to buy more. Never True 08/25/2023 Within the past 12 months th e food we bought just didn't last and we didn't have money to get more. Never True 08/25/2023 Purpose - Life Answer Date Recorded Purpose and direction in life Unknown Comments No Sex and Gender Information Value Date Recorded Sex Assigned at Not on file Legal Sex Female 11:58 AM EDT Gender Identity Not on file Sexual Orientation Not on file Last Filed Vital Signs Vital Sign Reading Time Taken Comments Blood Pressure 140/88 10/04/2023 10:22 AM EDT Pulse 66 10/04/2023 10:22 AM EDT Temperature 37.4 C (99.4 F) 10/04/2023 8:11 AM EDT Respiratory Rate 14 10/04/2023 10:22 AM EDT Oxygen Saturation 96% 10/04/2023 10:22 AM EDT Inhaled Oxygen Concentration - - Weight 98.4 kg (217 lb) 10/04/2023 8:11 AM EDT Height 160 cm (5' 3 ) 10/04/2023 8:11 AM EDT Body Mass Index 38.44 10/04/2023 8:11 AM EDT Plan of Treatment Health Maintenance Due Date Last Done Comments Depression Screening 1982 DTaP,Tdap and Td Vaccines (1 - Tdap) 1989 Zoster (Shingles) Vaccine (1 of 2) 2020 Adult BMI Screening 10/03/2024 10/04/2023 Tobacco Screening 10/03/2024 10/04/2023 Influenza Vaccine 02/05/2025 Colonoscopy 10/03/2033 10/04/2023, 10/04/2023 Medical Devices Not on file Procedures Procedure Name Priority Date/Time Associated Diagnosis Comments PROVATION COLONOSCOPY Routine 10/04/2023 8:11 AM EDT from Last 3 Months or Most Recently Relevant to Health Maintenance Results * Colonoscopy Report (10/04/2023 8:11 AM EDT) Narrative SYSTEMGENERATED, DOCUMENTATION - 10/04/2023 8:11 AM EDT This order has been auto-finalized for image and report archival in PACs. *For full report details, please reach out to your physician. This image is visible to you in MyChart.* us Adarsh E Grillis DO IMG OR IMG ORDERABLES Final Result from Last 3 Months or Most Recently Relevant to Health Maintenance Insurance [facility] Care Teams Taker Off Braker Machine Relationship Specialty Start Date End Date Terri Chun MD [address] [place] [address] PCP - General Family Medicine 10/09/16
--- OUTSIDE RECORDS SUMMARY | 2024-12-29 11:08 | XMS_ITS | Encounter Summary ---
Author Organization [facility] Address [address] [place] [address] Care Team Providers Care Location Man Name Role Phone Terri Chun MD Primary Care Provider [phone] Reason for Visit * Reason Comments Med Refill Encounter Details Date Type Department Care Team (Late st Contact Info) Description 11/11/2022 Refill [facility] [address] [place] [address] Terri Chun MD [address] [place], [place] [address] Type 2 diabetes mellitus without complication, without long-term current use of insulin (HCC) (Primary Dx) Social History Tobacco Use Types Packs/Day Years Used Date Smoking Tobacco: Never Assessed Comments Unknown Sex and Gender Information Value Date Recorded Sex Assigned at Not on file Legal Sex Female 7:02 PM EDT Gender Identity Female 08/19/2022 7:02 PM EDT Sexual Orientation Not on file documented as of this encounter Miscellaneous Notes * Telephone Encounter - Avis Ignacio - 11/11/2022 11:00 AM EDT Pt is asking if her sertraline 25 mg to [facility] please. Thank you documented in this encounter Plan of Treatment Upcoming Encounters Date Type Department Care Team (Late st Contact Info) Description 01/22/2025 11:30 AM EDT Office Visit [facility] [address] [place] [address] [place] [address] Mayra Saavedra PA [address] [place] [address] [place] [address] documented as of this encounter Visit Diagnoses Diagnosis Type 2 diabetes mellitus without complication, without long-term current use of insulin (HCC)- Primary documented in this encounter Care Teams Location Man Relationship Specialty Start Date End Date Terri Chun MD [address] [place] [address] PCP - General Family Medicine 11/11/22 documented as of this encounter
--- OUTSIDE RECORDS SUMMARY | 2024-12-29 11:08 | XMS_ITS | Encounter Summary ---
Author Organization [facility] Address [address] [place] [address] Care Team Providers Care Security Operations Analyst Name Role Phone Terri Chun MD Primary Care Provider [phone] Reason for Visit * Reason Comments Med Refill Encounter Details Date Type Department Care Team (Late st Contact Info) Description 09/12/2023 Refill [facility] [address] [place] [address] Apolonia Felder NP [address] [facility] [address] [place] [address] Hyperlipidemia, unspecified hyperlipidemia type Social History Tobacco Use Types Packs/Day Years [...] often do you attend chur ch or mosque services? Never 07/29/2023 Do you belong to any clubs o r organizations such as tenriism groups, unions, fraternal or athletic groups, or [...] Recorded Patient Health Questionnaire-2 Score 0 08/10/2023 [facility] [place] of Occupat ional Health - Occupational Stress [...] place to sleep or slept in a prison (including now)? No 07/29/2023 Comments Unknown Sex [...] EDT Office Visit [facility] OB [address] [facility] [address] Mayra Saavedra PA [address] [facility] [address] [place], [place] [address] documented as of this encounter Visit Diagnoses Diagnosis Hyperlipidemia, unspecified hyperlipidemia type documented in this encounter Additional Health Concerns Assessment Noted Time PHQ-9 Depression Total Score: 3 08/10/19 24 2:58 PM EST documented as of this encounter Care Teams Security Operations Analyst Relationship Specialty Start Date End Date Terri Chun MD [address] [place] [address] PCP - General Family Medicine 11/11/22 documented as of this encounter
--- NOTE | 2024-12-29 11:09 | ECG_ITS ---
[facility] Test Date: 2024-12-29 Pat Name: JESUS BATES Department: Room: - Gender: Female Ship Pilot: : 1970 Requested By: MARCUS WALTON Order Number: [id number] Reading MD: ODILON GARCIA M.D. Measurements Intervals Mcgraws Rate: 65 P: 56 VT: 167 QRS: 30 QRSD: 86 T: 72 QT: 408 QTc: 427 Interpretive Statements SINUS RHYTHM Normal ECG No previous ECG available for comparison Electronically Signed On 12-30-2024 8:17:13 EDT by ODILON GARCIA M.D.
--- NOTE | 2024-12-29 11:45 | P.GSHP_ITS ---
History of Present Illness History of Present Illness Chief complaint: multiple benign lesions labia Narrative: Patient presents for presurgical testing. Please see HPI from Dr. Barclay dated December 18, 2024. Review of Systems ROS Narrative Please see ROS from Dr. Barclay dated December 18, 2024. [facility] Medical History (Updated 12/29/24 @ 11:27 by Concetta Moran NP) Sebaceous cyst of labia ?N90.7 - Vulvar cyst (ICD-10) Labial cyst ?N90.7 - Vulvar cyst (ICD-10) Low iron ?E61.1 - Iron deficiency (ICD-10) Pulmonary embolism (2019) ?I26.99 - Other pulmonary embolism without acute cor pulmonale (ICD-10) Deep vein thrombosis (2019) ?I82.409 - Acute embolism and thrombosis of unspecified deep veins of unspecified lower extremity (ICD-10) Anemia ?D64.9 - Anemia, unspecified (ICD-10) High cholesterol ?E78.00 - Pure hypercholesterolemia, unspecified (ICD-10) Diabetes ?E11.9 - Type 2 diabetes mellitus without complications (ICD-10) Surgical History (Updated 12/29/24 @ 11:26 by Concetta Moran NP) History of colonoscopy ?Z98.890 - Other specified postprocedural states (ICD-10) History of tonsillectomy ?Z90.89 - Acquired absence of other organs (ICD-10) History of tubal ligation ?Z98.51 - Tubal ligation status (ICD-10) S/P cystoscopy ?Z98.890 - Other specified postprocedural states (ICD-10) History of endometrial ablation ?Z98.890 - Other specified postprocedural states (ICD-10) S/P breast lumpectomy ?Z98.890 - Other specified postprocedural states (ICD-10) History of breast biopsy ?Z98.890 - Other specified postprocedural states (ICD-10) History of hysterectomy ?Z90.710 - Acquired absence of both cervix and uterus (ICD-10) Family History (Updated 12/29/24 @ 11:26 by Concetta Moran NP) Other Family history of cancer Family history of diabetes mellitus Family history of myocardial infarction Social History (Updated 12/29/24 @ 11:20 by Concetta Moran NP) Within the past year, how often did you have a drink containing alcohol: monthly or less Smoking status: Never smoker Non-prescribed substance use: denies use 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 Highest level of school completed/degree received: high school graduate Meds Home Medications and Allergies Home Medications ?Medication ?Instructions ?Recorded ?Confirmed ?Type tirzepatide 10 mg/0.5 mL 10 mg subcut QWEEK 12/29/24 12/29/24 History subcutaneous pen injector (Mounjaro) Allergies Allergy/AdvReac Type Severity Reaction Status Date / Time Penicillins Allergy Rash Verified 12/29/24 11:17 Exam Narrative Exam Narrative: Constitutional: Awake, alert, comfortable, well-appearing, nontoxic, interactive, vital signs as charted Head: Normocephalic, atraumatic Neck: Supple, normal appearance, normal range of motion, no meningeal signs, no lymphadenopathy Respiratory: No respiratory distress, breath sounds clear Cardiovascular: Regular rate and rhythm, strong and regular heart tones Abdomen: Nontender, normal bowel sounds, soft, no CVA tenderness Musculoskeletal: Normal gait, no swelling or edema Skin: No rashes or induration, no lesions, only visible skin inspected Neuro: No neurological deficits, normal sensation Psychiatric: Oriented ?3, normal affect Assessment and Plan Assessment and Plan (1) Sebaceous cyst of labia: (2) Labial cyst: Plan Excision of benign lesion, destruction of multiple labial lesions scheduled with Dr. Barclay January 12, 2025.
[2024-12-29 11:57] LABS: Hematocrit 40.0 % (36.0-48.0); Hemoglobin 13.6 g/dL (12.0-16.0); Immature Granulocytes Abs Auto 0.01 10^3/uL (0.00-0.03); Immature Granulocytes Pct Auto 0.1 % (0.0-0.5); Lymphocytes Absolute Auto 2.5 10^3/uL (1.2-3.8); Mean Corpuscular HGB Conc 34.0 g/dL (29.9-35.2); Mean Corpuscular Hemoglobin 31.6 pg (26.7-34.0); Mean Corpuscular Volume 93.0 fL (81.0-99.0); Platelet Count 232 10^3/uL (150-450); Red Blood Count 4.30 10^6/uL (4.20-5.40); White Blood Count 7.3 10^3/uL (4.0-11.0)
[2024-12-29 12:17] LABS: Anion Gap 11.5; Blood Urea Nitrogen 19.0 mg/dL (7.0-18.0); Calcium 9.5 mg/dL (8.5-10.1); Carbon Dioxide 30.5 mmol/L (21.0-32.0); Chloride 102 mmol/L (98-107); Estimated GFR (African America >60 (>=60 mL/min/1.73m^2); Estimated GFR (Non-African Ame >60 (>=60 mL/min/1.73m^2); Glucose 84 mg/dL (74-106); Potassium 4.0 mmol/L (3.5-5.1); Sodium 140 mmol/L (136-145)
== END 2024-12-29 10:59 | disposition home or self-care (01) ==
PROVIDERS: PCP Family Medicine; Visit Provider Obstetrics & Gynecology
DX: Z01.810 Encounter for preprocedural cardiovascular examination (principal); Z01.812 Encounter for preprocedural laboratory examination; Z01.818 Encounter for other preprocedural examination; N90.7 Vulvar cyst
CPT/HCPCS: 36415; 80048; 85025; 93005; G0463

== ENCOUNTER 2025-01-12 07:21 | Day surgery (SDC) | payer OTHER, SELFPAY ==
[2024-12-29 11:39] VITALS: BP 123/83; PULSE 77; TEMP 36.4; O2SAT 100; BMI 33.7
[2025-01-12] VITALS (8 sets, daily range): BP systolic 106–130; BP diastolic 53–76; PULSE 58–81; TEMP 35.4–36.8; O2SAT 94–99
--- OUTSIDE RECORDS SUMMARY | 2025-01-12 07:23 | XMS_ITS | Clinical Summary ---
Author Organization [facility] Address [address], [address] [place] [address] Care Team Providers Care Machine Heel Seat Fitter Name Role Phone Terri Mayen MD Primary [...] 2015 FIT/FOBT: Average risk 2015 Fecal-DNA (Cologuard): [place] ge risk 2015 Sigmoidoscopy/CT colonography 2015 Pneumococcal [...] this topic Medical Devices Implanted Type Area Mammographer Device Identifier Shelf Expiration Date Model / Serial / Lot System Bulking Proc Bulkamid Urethral - [id number] Implanted:Qty: 2 on 07/02/2022 by Jhon Griffiths DO at [facility] N/A: Urethra Intelligent Data Sensor Devices 03/06/2025 [id number] / / [id number] Procedures Procedure Name Priority Date/Time Associated Diagnosis Comments HEMOGLOBIN A1C Routine 04/23/2017 8:17 AM EST from Last 3 Months or Most Recently Relevant to Health Maintenance Results * Hemoglobin A1c (04/23/2017 8:17 AM EST) Hemoglobin A1C 5.2 4.8 - 5.9 % 04/23/2017 11:[address] [facility] Estimated Avg Glucose 103 mg/dL 04/23/2017 11:[address] [facility] Comment: The ADA and AACC recommend providing the estimated average glucose result to permit better patient understanding of their HBA1c result. Performed at [address] [place] [address] ([phone] BLOOD SPECIMEN / Unknown 04/23/2017 8:17 AM EST 04/23/2017 8:18 AM EST us Luca Bailey MD CHEMISTRY ORDERABLES Final Re sult [facility] [address] [place] [address], [facility] [phone] from Last 3 Months or Most Recently Relevant to Health Maintenance Insurance [employer] Advance Directives * Full Code (Latest Code Status on File) Date Activated Date Inactivated Comments 04/28/2017 8:50 AM 04/28/2017 12:14 PM * Full Code Date Activated Date Inactivated Comments 04/28/2017 6:46 AM 04/28/2017 8:50 AM Care Teams Machine Heel Seat Fitter Relationship Specialty Start Date End Date Terri Mayen MD PCP - General Family Medicine 03/04/17
--- OUTSIDE RECORDS SUMMARY | 2025-01-12 07:23 | XMS_ITS | Encounter Summary ---
Author Organization [facility] Address [address] [place] [address] Care Team Providers Care Skiing Instructor Name Role Phone Terri Chun MD Primary Care Provider [phone] Reason for Visit * Reason Comments Med Refill Encounter Details Date Type Department Care Team (Late st Contact Info) Description 09/12[facility]2023 [facility] [address] [place] [address] Apolonia Felder NP [address] [id number] Hyperlipidemia, unspecified hyperlipidemia type Social History Tobacco [...] often do you attend chur ch or confucianist services? Never 07/29/2023 Do you belong to any clubs o r organizations such as confucianist groups, unions, fraternal or athletic groups, or [...] Recorded Patient Health Questionnaire-2 Score 0 08/10/2023 [facility] of Occupat ional Health - Occupational Stress [...] place to sleep or slept in a usp (including now)? No 07/29/2023 Comments Unknown Sex and Gender Information Value Date Recorded Sex Assigned at Not on file Legal Sex Female 7:02 PM EDT Gender Identity Female 08/19/2022 7:02 PM EDT Sexual Orientation Not on file documented as of this encounter Plan of Treatment Upcoming Encounters Date Type Department Care Team (Late st Contact Info) Description 01/22/2025 11:30 AM EDT Office Visit [facility] [address] [place] [address] Mayra Saavedra PA [address] [place] [address] documented as of this encounter Visit Diagnoses Diagnosis Hyperlipidemia, unspecified hyperlipidemia type documented in this encounter Additional Health Concerns Assessment Noted Time PHQ-9 Depression Total Score: 3 08/10/19 24 2:58 PM EST documented as of this encounter Care Teams Skiing Instructor Relationship Specialty Start Date End Date Terri Chun MD [address] [place] [address] PCP - General Family Medicine 11/11/22 documented as of this encounter
--- OUTSIDE RECORDS SUMMARY | 2025-01-12 07:23 | XMS_ITS | Encounter Summary ---
Author Organization [facility] Address [address] [facility] [place] [address] Care Team Providers Care Lining Setter Name Role Phone Terri Chun MD Primary Care Provider [phone] Encounter Details Date Type Department Care Team (Late st Contact Info) Description 12/31/2022 Abstract [facility] [address] [place] [address] Brandi Adams CN [address] [place], [place] [id number] Social History Tobacco Use Types Packs/Day Years [...] AM EDT Office Visit [facility] [address] [facility] [place] [address] Mayra Saavedra PA [address] [facility] [address] [place], [place] [phone] documented as of this encounter Visit Diagnoses Not on filedocumented in this encounter Care Teams Lining Setter Relationship Specialty Start Date End Date Terri Chun MD [address] [place] [address] PCP - General Family Medicine 11/11/22 documented as of this encounter
--- OUTSIDE RECORDS SUMMARY | 2025-01-12 07:23 | XMS_ITS | Encounter Summary ---
Author Organization [facility] Address [address] [facility] [place] [address] Care Team Providers Care Industrial Health And Safety Professor Name Role Phone Terri Chun MD Primary Care Provider [phone] Encounter Details Date Type Department Care Team (Late st Contact Info) Description 05/08/2024 Orders Only [facility] Medicine [facility] [place] [address] Terri Gary MA [facility] [place] [address] Social History Tobacco Use Types [...] any clubs o r organizations such as moravian groups, unions, fraternal or athletic groups, or [...] Recorded Patient Health Questionnaire-2 Score 0 08/10/2023 [facility] of Occupat ional Health - Occupational Stress [...] place to sleep or slept in a retirement (including now)? No 07/29/2023 Comments Unknown Sex [...] 01/22/2025 11:30 AM EDT Office Visit [facility] [address] [facility] [place] [address] Mayra Saavedra PA [address] [facility] [place] [address] documented as of this encounter Visit Diagnoses Not on filedocumented in this encounter Additional Health Concerns Assessment Noted Time PHQ-9 Depression Total Score: 3 08/10/19 24 2:58 PM EST documented as of this encounter Care Teams Industrial Health And Safety Professor Relationship Specialty Start Date End Date Terri Chun MD [address] [place] [address] PCP - General Family Medicine 11/11/22 documented as of this encounter
--- OUTSIDE RECORDS SUMMARY | 2025-01-12 07:23 | XMS_ITS | Encounter Summary ---
Author Organization [facility] Address [facility] [place] [id number] [address] [place] [address] Care Team Providers Care Furnace Feeder Name Role Phone Terri Chun MD Primary Care Provider [phone] Encounter Details Date Type Department Care Team (Late st Contact Info) Description 06/24/2021 Orders Only [facility] [address] [facility] [address] [place] [address] External, Scanning Provider Social History Tobacco Use [...] ECG ORDERABLES Final Result Performing Organization Address [facility] Co de Phone Number MANUALLY TRANSCRIBED RESULTS * Multiple labs (03/25/2021) 03/25/2021 us Scanning Provider External MS IMAGING Final Result Performing Organization Address [facility] de Phone Number MANUALLY TRANSCRIBED RESULTS * X-ray chest 2 views (03/25/2021) Anatomical Region Laterality Modality Body, Chest N/A Computed Radiogr aphy us Scanning Provider External IMG DIAGNOSTIC IMAGIN G ORDERABLES Final Result documented in this encounter Visit Diagnoses Not on filedocumented in this encounter Care Teams Furnace Feeder Relationship Specialty Start Date End Date Terri Chun MD [address] [place] [address] PCP - General Family Medicine 10/09/16 documented as of this encounter
--- OUTSIDE RECORDS SUMMARY | 2025-01-12 07:23 | XMS_ITS | Clinical Summary ---
Author Organization [facility] Address [address] [place] [address] Phone Care Team Providers Care Clay Machine Operator Name Role Phone Terri Chun MD Primary Care Provider [phone] Social History Tobacco Use Types Packs/Day Years Used Date Smoking Tobacco: Never Assessed Comments Unknown Sex and Gender Information Value Date Recorded Sex Assigned at Not on file Legal Sex Female 3:30 PM EST Gender Identity Not on file Sexual Orientation Not on file Plan of Treatment Not on file Care Teams Clay Machine Operator Relationship Specialty Start Date End Date Terri Chun MD [address] [place] [address] PCP - General 02/14/19
--- OUTSIDE RECORDS SUMMARY | 2025-01-12 07:23 | XMS_ITS | Encounter Summary ---
Author Organization [facility] Address [address] [facility] [place] [address] Care Team Providers Care Employee Placement Specialist Name Role Phone Terri Chun MD Primary Care Provider [phone] Reason for Visit * Reason Comments Med Refill Encounter Details Date Type Department Care Team (Late st Contact Info) Description 11/11/2022 Refill [facility] [place] [facility] [address] [place] [address] Terri Chun MD [address] [place], [place] [phone] Type 2 diabetes mellitus without complication, without [...] 11:30 AM EDT Office Visit [facility] [address] [place] [address] [place] [address] Mayra Saavedra PA [address] [place] [address] [place] [address] documented as of this encounter Visit Diagnoses Diagnosis Type 2 diabetes mellitus without complication, without long-term current use of insulin (HCC)- Primary documented in this encounter Care Teams Employee Placement Specialist Relationship Specialty Start Date End Date Terri Chun MD [address] [place] [address] PCP - General Family Medicine 11/11/22 documented as of this encounter
--- OUTSIDE RECORDS SUMMARY | 2025-01-12 07:23 | XMS_ITS | Encounter Summary ---
Author Organization [facility] Address [address] [place] [address] Phone Care Team Providers Care Three Dimensional Art Instructor Name Role Phone Terri Chun MD Primary Care Provider [phone] Encounter Details Date Type Department Care Team (Late st Contact Info) Description 12/19/2018 Orders Only [facility] [address] [place] [address] Conversion, Onbase Social History Tobacco Use Types [...] on filedocumented in this encounter Care Teams Three Dimensional Art Instructor Relationship Specialty Start Date End Date Terri Chun MD [address] [place] [address] PCP - General 02/14/19 documented as of this encounter
--- OUTSIDE RECORDS SUMMARY | 2025-01-12 07:23 | XMS_ITS | Encounter Summary ---
Author Organization [facility] Address [address] [facility] [place] [address] Care Team Providers Care Clam Dredger Name Role Phone Terri Chun MD Primary Care Provider [phone] Encounter Details Date Type Department Care Team (Late st Contact Info) Description 05/05/2023 Abstract [facility] [address] [place] [address] Apolonia Felder NP [address] [facility] [place] [address] Social History Tobacco Use Types [...] AM EDT Office Visit [facility] [address] [facility] [place] [address] Mayra Saavedra PA [address] [facility] [place] [address] documented as of this encounter Visit Diagnoses Not on filedocumented in this encounter Care Teams Clam Dredger Relationship Specialty Start Date End Date Terri Chun MD [address] [place] [address] PCP - General Family Medicine 11/11/22 documented as of this encounter
--- OUTSIDE RECORDS SUMMARY | 2025-01-12 07:23 | XMS_ITS | Clinical Summary ---
Author Organization [employer] Address [facility] [id number] [address] [place] [address] Care Team Providers Care Classified Ad Clerk Name Role Phone Terri Chun MD Primary Care Provider [phone] Allergies Active Allergy Reactions Criticality Noted Date [...] Most Recently Relevant to Health Maintenance Insurance [facility] Care Teams Classified Ad Clerk Relationship Specialty Start Date End Date Terri Chun MD [address] [place] [address] PCP - General Family Medicine 10/09/16
--- OUTSIDE RECORDS SUMMARY | 2025-01-12 07:23 | XMS_ITS | Encounter Summary ---
Author Organization [facility] Address [address] [facility] [place] [address] Care Team Providers Care Helper Chicken Farm Name Role Phone Terri Chun MD Primary Care Provider [phone] Encounter Details Date Type Department Care Team (Late st Contact Info) Description 10/31/2024 Orders Only [facility] [address] [place] [address] Susi Frank LPN [address] [place] [id number] Social History Tobacco Use Types Packs/Day Years [...] often do you attend chur ch or adventism services? Never 07/29/2023 Do you belong to any clubs o r organizations such as sikh groups, unions, fraternal or athletic groups, or [...] Score 0 09/08/2024 [facility] of Occupat ional Health - Occupational [...] place to sleep or slept in a half-way (including now)? No 07/29/2023 Comments No Sex [...] 01/22/2025 11:30 AM EDT Office Visit [facility] [address] [facility] [place] [address] Mayra Saavedra PA [address] [place] [address] documented as of this encounter Procedures Procedure [...] documented as of this encounter Care Teams Helper Chicken Farm Relationship Specialty Start Date End Date Terri Chun MD [address] [place] [address] PCP - General Family Medicine 11/11/22 documented as of this encounter
--- OUTSIDE RECORDS SUMMARY | 2025-01-12 07:23 | XMS_ITS | Encounter Summary ---
Author Organization [facility] Address [address] [place] [address] Care Team Providers Care Automotive Glass Installer Name Role Phone Terri Chun MD Primary Care Provider [phone] Encounter Details Date Type Department Care Team (Late st Contact Info) Description 11/13/2024 Orders Only [facility] Family [facility] [address] [place] [address] Terri Chun MD [address] [place] [address] Social History Tobacco Use Types [...] often do you attend chur ch or denominational services? Never 07/29/2023 Do you belong to any clubs o r organizations such as jainism groups, unions, fraternal or athletic groups, or [...] Recorded Patient Health Questionnaire-2 Score 0 09/08/2024 [facility] of Occupat ional Health - Occupational Stress [...] place to sleep or slept in a skilled nursing (including now)? No 07/29/2023 Comments No Sex [...] 11:30 AM EDT Office Visit [facility] [address] [facility] [place] [address] Mayra Saavedra PA [address] [facility] [place] [address] documented as of this encounter Procedures Procedure [...] documented as of this encounter Care Teams Automotive Glass Installer Relationship Specialty Start Date End Date Terri Chun MD [address] [place] [address] PCP - General Family Medicine 11/11/22 documented as of this encounter
--- OUTSIDE RECORDS SUMMARY | 2025-01-12 07:23 | XMS_ITS | Encounter Summary ---
Author Organization [facility] Address [address] [place] [address] Care Team Providers Care Steno Typist Name Role Phone Terri Chun MD Primary Care Provider [phone] Encounter Details Date Type Department Care Team (Late st Contact Info) Description 12/29/2024 [facility] Result Encounter [facility] External Department Unsolicited Provider, Generic External Data Social History Tobacco Use Types Packs/Day Years [...] 07/29/2023 How often do you attend chur or anabaptist services? Never 07/29/2023 Do you belong to any clubs o r organizations such as orthodoxy groups, unions, fraternal or athletic groups, or [...] Recorded Patient Health Questionnaire-2 Score 0 09/08/2024 [facility] - [facility]ational [facility] Questionnaire Answer Date [...] care home (including now)? No 07/29/2023 Comments No Sex [...] EDT Office Visit [facility] [address] [facility] [place] [address] Mayra Saavedra PA [address] [facility] [address] [place], [place] [address] documented as of this encounter Procedures Procedure Name Priority Date/Time Associated Diagnosis Comments ECG 12-LEAD 12/29/2024 9:35 AM EDT documented in this encounter Results * ECG 12-LEAD (12/29/2024 9:35 AM EDT) Anatomical Region Laterality Modality Other 12/29/2024 9:35 AM EDT Narrative 12/30/2024 8:17 AM EDT [address] [address] Electrocardiograph Report Signed Patient: AMANDA ADAMS MR#: [id number] : 1970 Acct:[id number] Age/Sex: 54 / F ADM Date: 12/29/24 Loc: PST Attending Dr: Marcus Barclay D.O. Ordering Physician: Marcus Barclay D.O. Date of Service: 12/29/24 Procedure(s): ECG 12 lead Accession Number(s): [id number] cc: [facility] Test Date: 2024-12-29 Pat Name: AMANDA ADAMS Department: Room: - Gender: Female Pigment Presser: : 1970 Requested By: MARCUS BARCLAY Order Number: [id number] Reading MD: ODILON GARCIA M.D. Measurements Intervals [place] Rate: 65 P: 56 HI: 167 QRS: 30 QRSD: 86 T: 72 QT: 408 QTc: 427 Interpretive Statements SINUS RHYTHM Normal ECG No previous ECG available for comparison Electronically Signed On 12-30-2024 8:17:13 EDT by ODILON GARCIA M.D. Dictated By: ODILON GARCIA Signed By: 12/30/24816 DD/ 4 TD/TT: Bowling Ball Weigher And Packer: Procedure Note Radiology, Radiologist, - 12/30/[address] [address] Electrocardiograph Report Signed Patient: AMANDA ADAMS MMR#: [id number] : 1970Acct:[id number] Age/Sex: 54 / FADM Date: 12/29/24 Loc: PST Attending Dr: Marcus Barclay D.O. Ordering Physician: Marcus Barclay D.O. Date of Service: 12/29/24 Procedure(s): ECG 12 lead Accession Number(s): [id number] cc: The [facility] Test Date: 2024-12-29 Pat Name: AMANDA ADAMS Department: Room: - Gender: Female Pigment Presser: : 1970 Requested By: MARCUS BARCLAY Order Number: [id number] Reading MD: ODILON GARCIA M.D. Measurements Intervals [place] Rate: 65 P: 56 HI: 167 QRS: 30 QRSD: 86 T: 72 QT: 408 QTc: 427 Interpretive Statements SINUS RHYTHM Normal ECG No previous ECG available for comparison Electronically Signed On 12-30-2024 8:17:13 EDT by ODILON GARCIA M.D. Dictated By: ODILON GARCIA Signed By:12/30/24816 DD/ 4 TD/TT: Bowling Ball Weigher And Packer: Generic External Data Provider [facility] Final Result documented in this encounter Visit Diagnoses Not on filedocumented in this encounter Additional Health Concerns Assessment Noted Time PHQ-9 Depression Total Score: 3 08/10/19 24 2:58 PM EST documented as of this encounter Care Teams Steno Typist Relationship Specialty Start Date End Date Terri Chun MD [address] [place] [address] PCP - General Family Medicine 11/11/22 documented as of this encounter
--- OUTSIDE RECORDS SUMMARY | 2025-01-12 07:23 | XMS_ITS | Clinical Summary ---
Author Organization [facility] Healthcare Address [address] [place] [address] Care Team Providers Care Wing Coverer Name Role Phone Terri Chun MD Primary Care Provider [phone] Allergies Active Allergy Reactions Criticality Noted Date [...] Dysmenorrhea 11/26/2022 Female cystocele 11/26/2022 Hypercoagulable state ([facility]) 11/26/2022 Hyperlipidemia 11/26/2022 Assessment & Plan (09/08/2024 [...] Encounters Date Type Department Care Team Description 12/29/2024 Clinisync Result Encounter NOMS External Department Unsolicited Provider, Generic External Data 12/29/2024 Clinisync Result Encounter NOMS External Department Unsolicited Marcus Barclay DO 12/18/2024 1:50 PM EDT Consult [facility] [address] [address] [place] [id number] Marcus Barclay DO Pre-op examination; Labial cyst; Sebaceous cyst of labia 11/13/2024 Orders Only [facility] [address] [place] [address] Terri Chun MD 11/10/2024 Telephone [place] [id number] [facility] [place] [address] Terri Chun MD 11/08/2024 Refill [place] [id number] [facility] [place] [address] Terri Chun MD Type 2 diabetes mellitus without complication, without long-term current use of insulin (HCC) (Primary Dx); Morbid (severe) obesity due to excess calories ([facility]-H[facility]) 11/06/2024 11:20 AM EDT Consult [facility] [address] [place] [address] Marcus Barclay DO Sebaceous cyst of labia; Labial cyst 11/06/2024 Bamboo flowsheet [facility] [address] [place] [address] Marcsu Barclay DO 10/31/2024 Orders Only [facility] [address] [facility] [address] Susi Frank LPN 10/19/2024 Results Follow-Up [facility] [address] [place] [address] Terri Ball MA 10/16/2024 5:30 PM EDT Office Visit [facility] [address] [facility] [place] [address] Brandi Adams CNM Sebaceous cyst of labia 10/16/2024 Bamboo flowsheet [facility] [address] [place] [address] Brandi Adams CNM from Last 3 Months Family History Medical [...] often do you attend chur ch or scientologist services? Never 07/29/2023 Do you belong to any clubs o r organizations such as anglican groups, unions, fraternal or athletic groups, or [...] Recorded Patient Health Questionnaire-2 Score 0 09/08/2024 [facility] of Occupat ional Health - Occupational Stress [...] place to sleep or slept in a [place] health care facility (including now)? No 07/29/2023 Comments No Sex [...] EDT Office Visit [facility] [address] [facility] [address] Mayra Saavedra PA [address] [facility] [address] [place], [place] [id number] Health Maintenance Due Date Last Done Comments CT Colonography 1970 FIT-DNA 1970 FIT 1970 FOBT 1970 Sigmoidoscopy 1970 Pap Smear 05/21/2023 05/21/2020 Diabetes: Hemoglobin A1C 10/29/2024 025, 04/24/2024, 07/30/2023, Additional history exists Influenza Vaccine (#1) 2025 Cervical Cancer Screening 05/21/2025 HPV/Cotest 05/21/2025 05/21/2020 Diabetes: Urine Protein Screening 08/01/2025 08/01/2024, 06/25/2022, 06/11/2021, Additional history exists Mammogram 09/18/2025 09/18/2024, 03/0 11/2023, 01/23/2022, Additional history exists Diabetes: Retinopathy Screening 10/17/2026 10/17/2024, 08/14/2021, 07/10/2019, Additional history exists Colonoscopy 10/03/2033 10/04/2023, 09/06, 10/04/2023 Colorectal Cancer Screening 10/03/2033 Procedures Procedure Name Priority Date/Time Associated Diagnosis Comments ALL CBC WITH AUTO DIFF Routine 11:35 AM EDT ALL BASIC METABOLIC PANEL Routine 12/29/2024 11:35 AM EDT ECG 12-LEAD 12/29/2024 9:35 AM EDT DIABETIC RETINOPATHY SCREENING - OU - BOTH [...] Recently Relevant to Health Maintenance Results * ALL CBC WITH AUTO DIFF (12/29/2024 11:35 AM EDT) TBH WBC 7.3 4.0 - 11.0 10 3/uL TBH TBH RBC 4.30 4.20 - 5.40 10 6/uL TBH TBH HGB 13.6 12.0 - 16.0 g/dL TBH TBH HCT 40.0 36.0 - 48.0 % TBH TBH MCV 93.0 81.0 - 99.0 fL TBH TBH MCH 31.6 26.7 - 34.0 pg TBH TBH MCHC 34.0 29.9 - 35.2 g/dL TBH TBH RDW 12.2 11.0 - 15.0 % TBH TBH PLT 232 150 - 450 10 3/uL TBH TBH MPV 10.8 9.5 - 13.5 fL TBH NEUTROPHILS PERCENT AUTO 55.6 43.0 - 75.0 % TBH LYMPHOCYTES PERCENT AUTO 34.0 20.5 - 60.0 % TBH MONOCYTES PERCENT AUTO 8.8 1.7 - 12.0 % TBH TBH EO % 1.1 0.9 - 7.0 % TBH BASOPHILS PERCENT AUTO 0.4 0.2 - 2.0 % TBH IMMATURE GRANULOCYTES PCT AUTO 0.1 0.0 - 0.5 % TBH NEUTROPHILS ABSOLUTE AUTO 4.1 1.4 - 6.5 10 3/uL TBH LYMPHOCYTES ABSOLUTE AUTO 2.5 1.2 - 3.8 10 3/uL TBH MONOCYTES ABSOLUTE AUTO 0.6 0.3 - 0.8 10 3/uL TBH TBH EO # 0.1 0.0 - 0.7 10 3/uL TBH BASOPHILS ABSOLUTE AUTO 0.0 0.0 - 0.1 10 3/uL TBH IMMATURE GRANULOCYTES ABS AUTO 0.01 0.00 - 0.03 10 3/uL TBH 12/29/2024 11:3 5 AM EDT 12/29/2024 11:39 AM EDT Narrative CLINISYNC - 12/29/2024 12:24 PM EDT us Generic External Data Provider CLINISYNC F inal Result [facility] * (ABNORMAL) ALL BASIC METABOLIC PANEL (12/29/2024 11:35 AM EDT) SODIUM 140 136 - 145 mmol/L TBH POTASSIUM 4.0 3.5 - 5.1 mmol/L TBH CHLORIDE 102 98 - 107 mmol/L TBH CARBON DIOXIDE 30.5 21.0 - 32.0 mmol/L TBH ANION GAP 11.5 TBH GLUCOSE 84 74 - 106 mg/dL TBH BLOOD UREA NITROGEN 19.0(H) 7.0 - 18.0 mg/dL TBH CREATININE 0.91 0.55 - 1.02 mg/dL TBH TBH EGFR-AF ANDORRAN >60 >=60 mL/min/1.7 3m 2 TBH TBH EGFR-NON AF ANDORRAN >60 >=60 mL/min/1.7 3m 2 TBH BUN CREATININE RATIO 20.9 TBH CALCIUM 9.5 8.5 - 10.1 mg/dL TBH 12/29/2024 11:3 5 AM EDT 12/29/2024 11:39 AM EDT Narrative CLIN[facility]YNC - 12/29/2024 12:17 PM EDT Generic External Data Provider [facility] * ECG 12-LEAD (12/29/2024 9:35 AM EDT) Anatomical Region Laterality Modality Other 12/29/2024 9:35 AM EDT Narrative 12/30/2024 8:17 [place] [address] Electrocardiograph Report Signed Patient: JESUS ADAMS MR#: [id number] : 1970 Acct:[id number] Age/Sex: 54 / F ADM Date: 12/29/24 Loc: PST Attending Dr: Marcus Barclay D.O. Ordering Physician: Marcus Barclay D.O. Date of Service: 12/29/24 Procedure(s): ECG 12 lead Accession Number(s): [id number] cc: [facility] Test Date: 2024-12-29 Pat Name: JESUS ADAMS Department: Room: - Gender: Female Sample Grader: : 1970 Requested By: MARCUS BARCLAY Order Number: [id number] Laurie MD: ODILON GARCIA M.D. Measurements Intervals [place] Rate: 65 P: 56 SD: 167 QRS: 30 QRSD: 86 T: 72 QT: 408 QTc: 427 Interpretive Statements SINUS RHYTHM Normal ECG No previous ECG available for comparison Electronically Signed On 12-30-2024 8:17:13 EDT by ODILON GARCIA M.D. Dictated By: ODILON GARCIA Signed By: 12/30/24816 DD/ TD/TT: Manager E Commerce: Procedure Note Radiology, Radiologist, MD - 12/30/2024 [place] [address] Electrocardiograph Report Signed Patient: JESUS ADAMS MMR#: [id number] : 1970Acct:[id number] Age/Sex: 54 / FADM Date: 12/29/24 Loc: [facility] Attending Dr: Marcus Barclay D.O. Ordering Physician: Marcus Barclay D.O. Date of Service: 12/29/24 Procedure(s): ECG 12 lead Accession Number(s): [id number] cc: [facility] Test Date: 2024-12-29 Pat Name: JESUS ADASM Department: Room: - Gender: Female Sample Grader: : 1970 Requested By: MARCUS BARCLAY Order Number: [id number] Laurie MD: ODILON GARCIA M.D. Measurements Intervals [place] Rate: 65 P: 56 SD: 167 QRS: 30 QRSD: 86 T: 72 QT: 408 QTc: 427 Interpretive Statements SINUS RHYTHM Normal ECG No previous ECG available for comparison Electronically Signed On 12-30-2024 8:17:13 EDT by ODILON GARCIA M.D. Dictated By: ODILON GARCIA Signed By:12/30/24816 DD/ TD/TT: Manager E Commerce: Generic External Data Provider [facility] Final Result * Diabetic Retinopathy Screening - OU - [...] TMA, UROGENITAL NOT DETECTED NOT DETECTED [facility] Comment: For additional information, please refer to https://education.Spotlime/faq/HFQ855 (This link is being provided for information/ educational purposes only.) 10/17/2024 7:54 AM EDT 10/17/2024 7:55 AM EDT Narrative Resulting Agency Comment Performing Organization Information Site ID: QPT Name: [facility] Address: [address] [place] [phone] Director: Parker Holcomb MD us Brandi TREVINO LAB CYTOLOGY ORDERABLES Zeina l Result [facility] * Bilateral screening mammogram with [...] Performing Organization Information Site ID: QPT Name: [facility] Address: [address] [place] [address], [address] [place] [phone] Director: Parker Holcomb MD Apolonia Felder MEDICAL CHEMIST LAB URINE ORDERABLES Fi nal Result [facility] * POCT glycosylated hemoglobin (Hb A1C) docked device (08/01/2024 8:41 AM EST) Hemoglobin A1C 6.3 Blood Venous blood specimen / Unknown 08/01/2024 8:41 AM EST Apolonia Felder MEDICAL CHEMIST POINT OF CARE TEST ENTE R/EDIT ORDERABLES [...] computer assisted technology. [facility] LEGACY EXTERNAL LAB NANOSCIENCE TECHNICIAN: SEE NOTE NO [facility] Comment: DMK, CT(ASCP) CT screening location: [facility] [place], [address] [place] [address]. COMMENT SEE NOTE [facility] LEGAC Y EXTERNAL [...] HPV MRNA E6/E7 Not Detected Not Detected [facility] EXTERNAL LAB Comment: This test was performed using the APTIMA HPV Assay ([employer] This assay detects E6/E7 viral messenger RNA (mRNA) from 14 high-risk HPV types (16,18,31,33,35,39,45,51,52,56,58,59,66,68). The analytical performance characteristics of this assay have been determined by [facility]. The modifications have not been cleared or approved by the FDA. This assay has been validated pursuant to the CLIA regulations and is used for clinical purposes. 05/21/2020 Brandi Adams CNM [facility] Final Result Performing Organization Address [facility] Co de Phone Number [facility] EXTERNAL LAB * Pap Smear (05/21/2020 12:00 AM EST) Swab Cervical swab / Unknown Ning [facility] Ob LAB CYTOLOGY ORDERABLES Final Result Performing Organization Address City/State/[facility] Co de Phone Number EXTERNAL LAB from Last 3 Months or Most Recently Relevant to Health Maintenance Insurance [employer] Care Teams Wing Coverer Relationship Specialty Start Date End Date Terri Chun MD [address] [place] [address] PCP - General Family Medicine 11/11/22
--- OUTSIDE RECORDS SUMMARY | 2025-01-12 07:23 | XMS_ITS | Encounter Summary ---
Author Organization [facility] Address [address] [facility] [place] [address] Care Team Providers Care Multi Operation Machine Operator Name Role Phone Terri Chun MD Primary Care Provider [phone] Encounter Details Date Type Department Care Team (Late Contact Info) Description 12/19/2022 Orders Only [facility] [address] [facility] [place] [address] Danni Asencio MA Social History [...] AM EDT Office Visit [facility] [address] [facility] [place] [phone] Mayra Saavedra PA [address] [facility] [place] [address] documented as of this encounter Visit Diagnoses Not on filedocumented in this encounter Care Teams Multi Operation Machine Operator Relationship Specialty Start Date End Date Terri Chun MD [address] [place] [address] PCP - General Family Medicine 11/11/22 documented as of this encounter
--- OUTSIDE RECORDS SUMMARY | 2025-01-12 07:23 | XMS_ITS | Encounter Summary ---
Author Organization [facility] Address [address] [place] [address] Care Team Providers Care Sack Cleaning Hand Name Role Phone Terri Chun MD Primary Care Provider [phone] Encounter Details Date Type Department Care Team (Late st Contact Info) Description 10/19/2024 Results Follow-Up [facility] [address] [place] [address] Terri Ball MA Social History [...] often do you attend chur ch or uatsdin services? Never 07/29/2023 Do you belong to any clubs o r organizations such as rastafarian groups, unions, fraternal or athletic groups, or [...] Recorded Patient Health Questionnaire-2 Score 0 09/08/2024 [facility] of Occupat ional Health - Occupational [...] place to sleep or slept in a senior living (including now)? No 07/29/2023 Comments No Sex and Gender Information Value Date Recorded Sex Assigned at Not on file Legal Sex Female 7:02 PM EDT Gender Identity Female 08/19/2022 7:02 PM EDT Sexual Orientation Not on file documented as of this encounter Plan of Treatment Upcoming Encounters Date Type Department Care Team (Late st Contact Info) Description 01/22/2025 11:30 AM EDT Office Visit [facility] [address] [facility] [place] [address] Mayra Saavedra PA [address] [facility] [place] [address] documented as of this encounter Visit Diagnoses Not on filedocumented in this encounter Additional Health Concerns Assessment Noted Time PHQ-9 Depression Total Score: 3 08/10/19 24 2:58 PM EST documented as of this encounter Care Teams Sack Cleaning Hand Relationship Specialty Start Date End Date Terri Chun MD [address] [facility] [place] [address] PCP - General Family Medicine 11/11/22 documented as of this encounter
--- OUTSIDE RECORDS SUMMARY | 2025-01-12 07:23 | XMS_ITS | Encounter Summary ---
Author Organization [facility] Address [address] [facility] [place] [address] Care Team Providers Care Patient Services Specialist Name Role Phone Terri Chun MD Primary Care Provider [phone] Encounter Details Date Type Department Care Team (Late st Contact Info) Description 12/29/2024 Clinisync Result Encounter [facility] External Department Unsolicited Ayaan Barclay, DO [address] [facility] [address] [place], [place] [id number] Social History Tobacco Use Types Packs/Day Years [...] How often do you attend chur or uatsdin services? Never 07/29/2023 Do you belong to any clubs o r organizations such as christian groups, unions, fraternal or athletic groups, or [...] Recorded Patient Health Questionnaire-2 Score 0 09/08/2024 [facility] of Occupat ional Health - Occupational [...] EDT Office Visit [facility] [address] [place] [phone] Mayra Saavedra PA [address] [facility] [place] [address] documented as of this encounter Procedures Procedure Name Priority Date/Time Associated Diagnosis Comments ALL CBC WITH AUTO DIFF Routine 12/29/2024 11:35 AM EDT ALL BASIC METABOLIC PANEL Routine 12/29/2024 11:35 AM EDT documented in this encounter Results * ALL CBC WITH AUTO DIFF [...] 5 AM EDT 12/29/2024 11:39 AM EDT Marilu WEISSISYNC - 12/29/2024 12:24 PM EDT us Generic External Data Provider AMADONC F [facility]al [facility] * (ABNORMAL) ALL BASIC METABOLIC PANEL (12/29/2024 [...] 0.55 - 1.02 mg/dL TBH TBH EGFR-AF CHINESE >60 >=60 mL/min/1.7 3m 2 TBH TBH EGFR-NON AF CHINESE >60 >=60 mL/min/1.7 3m 2 TBH BUN CREATININE RATIO 20.9 TBH CALCIUM 9.5 8.5 - 10.1 mg/dL TBH 12/29/2024 11:3 5 AM EDT 12/29/2024 11:39 AM EDT Narrative CLINISYNC - 12/29/2024 12:17 PM EDT us Generic External Data Provider ARIELLE F inal Result ARIELLE TB documented in this encounter Visit Diagnoses Not on filedocumented in this encounter Additional Health Concerns Assessment Noted Time PHQ-9 Depression Total Score: 3 08/10/19 24 2:58 PM EST documented as of this encounter Care Teams Patient Services Specialist Relationship Specialty Start Date End Date Terri Chun MD [address] [place] [address] PCP - General Family Medicine 11/11/22 documented as of this encounter
--- OUTSIDE RECORDS SUMMARY | 2025-01-12 07:23 | XMS_ITS | Encounter Summary ---
Author Organization [facility] Address [address] [facility] [place] [address] Care Team Providers Care Insulation Board Back Tender Name Role Phone Terri Chun MD Primary Care Provider [phone] Encounter Details Date Type Department Care Team (Late st Contact Info) Description 01/25/2023 Abstract [facility] [address] [place] [address] Apolonia Felder NP [address] [facility] [place] [address] Social History Tobacco Use Types [...] AM EDT Office Visit [facility] [address] [facility] [place] [address] Mayra Saavedra PA [address] [facility] [place] [address] documented as of this encounter Visit Diagnoses Not on filedocumented in this encounter Care Teams Insulation Board Back Tender Relationship Specialty Start Date End Date Terri Chun MD [address] [place] [address] PCP - General Family Medicine 11/11/22 documented as of this encounter
--- OUTSIDE RECORDS SUMMARY | 2025-01-12 07:23 | XMS_ITS | Encounter Summary ---
Author Organization [facility] Address [address] [facility] [place] [address] Care Team Providers Care Civil Division Deputy Sheriff Name Role Phone Terri Chun MD Primary Care Provider [phone] Encounter Details Date Type Department Care Team (Late st Contact Info) Description 09/18/2024 Results [facility] [address] [place] [address] Terri Chun MD [address] [place], [place] [phone] Social History Tobacco Use Types Packs/Day Years [...] often do you attend chur ch or confucianism services? Never 07/29/2023 Do you belong to any clubs o r organizations such as mormonism groups, unions, fraternal or athletic groups, or [...] Recorded Patient Health Questionnaire-2 Score 0 09/08/2024 [facility] of Occupat ional [facility] - Occupational Stress Questionnaire Answer [...] place to sleep or slept in a fpc (including now)? No 07/29/2023 Comments Unknown Sex [...] AM EDT Office Visit [facility] [address] [facility] [place] [address] Mayra Saavedra PA [address] [facility] [place] [address] documented as of this encounter Visit Diagnoses Not on filedocumented in this encounter Additional Health Concerns Assessment Noted Time PHQ-9 Depression Total Score: 3 08/10/19 24 2:58 PM EST documented as of this encounter Care Teams Civil Division Deputy Sheriff Relationship Specialty Start Date End Date Terri Chun MD [address] [place] [address] PCP - General Family Medicine 11/11/22 documented as of this encounter
[2025-01-12 07:25] LABS: Hematocrit 39.2 % (36.0-48.0); Hemoglobin 13.4 g/dL (12.0-16.0); Immature Granulocytes Abs Auto 0.02 10^3/uL (0.00-0.03); Immature Granulocytes Pct Auto 0.3 % (0.0-0.5); Lymphocytes Absolute Auto 2.4 10^3/uL (1.2-3.8); Mean Corpuscular HGB Conc 34.2 g/dL (29.9-35.2); Mean Corpuscular Hemoglobin 31.8 pg (26.7-34.0); Mean Corpuscular Volume 93.1 fL (81.0-99.0); Platelet Count 246 10^3/uL (150-450); Red Blood Count 4.21 10^6/uL (4.20-5.40); White Blood Count 7.2 10^3/uL (4.0-11.0)
[2025-01-12] MEDS: SILVER SULFADIAZINE 1% CREAM 25 GM TUBE 1 APPLIC TOPICAL (10:30)
--- NOTE | 2025-01-12 10:30 | PM.ONB ---
Brief Operative Note Date of procedure: 01/12/25 Pre-op diagnosis general: bilateral labial lesions greater than 14 Post-op diagnosis: same as pre-op Procedure: NAME OF PROCEDURE: [destruction of greater than 14 multiple labial lesions] PROCEDURE: The patient was taken back to the Operating Room where she was prepped and draped in normal sterile fashion after being placed under general anesthesia without difficulty. She was also placed in the dorsal lithotomy position. the labial lesions where identified and destruction with needle point cautery, greater than 14 where cauterized, excellent hemostasis, silvadine applied to area Anesthesia: MAC Surgeon: Ayaan Barclay Estimated blood loss (mL): 5 Pathology: none sent Condition: stable Disposition: PACU Urinary Catheter Management Urinary Catheter Management Straight: Cath placed during this visit: no
--- NOTE | 2025-01-12 11:50 | PC.NURSE ---
Up to bathroom and voids clear yellow without difficulty
== END 2025-01-12 12:00 | disposition home or self-care (01) ==
PROVIDERS: PCP Family Medicine; Visit Provider Obstetrics & Gynecology
PROC: (CPT 940; principal; 2025-01-12 09:00)
DX: N90.89 Other specified noninflammatory disorders of vulva and perineum (principal); N90.7 Vulvar cyst; E11.9 Type 2 diabetes mellitus without complications; D64.9 Anemia, unspecified; Z98.51 Tubal ligation status; Z90.710 Acquired absence of both cervix and uterus; E78.5 Hyperlipidemia, unspecified; Z86.711 Personal history of pulmonary embolism
CPT/HCPCS: 56501; 36415; 82948; 85025; J1100; J1885; J2250; J2405; J2704; J3010